=== PATIENT | male | born 1945 | race Caucasian/White ===

== ENCOUNTER 2020-05-17 21:44 | Inpatient (IN) | payer MEDICARE, SELFPAY ==
--- NOTE | ~2020-05-17 | XR_ITS ---
EXAMINATION: XR chest 1V portable INDICATION: STEMI, chest pain TECHNIQUE: Portable AP chest at 2156 hours COMPARISON: None available FINDINGS: There are patchy bilateral airspace opacities with a peripheral predominance. No pleural ef fusion or pneumothorax is identified. The heart size is normal. A moderate-sized hiatal hernia is not ed. IMPRESSION: 1. Patchy bilateral airspace opacities which could reflect pneumonia and/or pulmonary edema. Reviewed, dictated and finalized at location A. [facility] IMPRESSION: 1. Patchy bilateral airspace opacities which could reflect pneumonia and/or pul monary edema.
[2020-05-17 21:41] VITALS: BP 152/85; PULSE 117; RESP 16; TEMP 36.2; O2SAT 96
--- NOTE | 2020-05-17 21:49 | ECG_ITS ---
Measurements Intervals [place] Rate: 113 P: 72 ID: 171 QRS: 5 QRSD: 92 T: 105 QT: 310 QTc: 427 Interpretive Statements SINUS TACHYCARDIA VENTRICULAR PREMATURE COMPLEX LOW QRS VOLTAGE IN LIMB LEADS EXTENSIVE ANTERIOR ST ELEVATION- PROBABLY RECENT INFARCT BASELINE ARTIFACT- I, II, AVF ABNORMAL ECG Electronically Signed On 05-18-2020 7:28:39 SENIOR DATA ARCHITECT by Gamal Dominguez D.O.
[2020-05-17 21:59] LABS: Basophils Percent Auto 0.3 % (0.2-1.2); Eosinophils Absolute Auto 0.1 K/mm3 (0-0.3); Eosinophils Percent Auto 0.4 % (0-4.4); Hematocrit 44.7 % (42.0-52.0); Hemoglobin 14.6 g/dL (14.0-18.0); Immature Granulocyte Absolute 0.05 K/mm3 (0.00-0.031); Immature Granulocyte Percent A 0.4 % (0-0.5); Lymphocytes Absolute Auto 1.49 K/mm3 (0.9-3.2); Lymphocytes Percent Auto 11.1 % (18.3-44.2); Mean Corpuscular HGB Conc 32.7 g/dl (32-36); Mean Corpuscular Volume 91.8 fl (80-100); Mean Platelet Volume 10.7 fl (7.4-10.4); Monocytes Absolute Auto 0.8 K/mm3 (0.1-0.6); Monocytes Percent Auto 6.1 % (2.6-8.5); Neutrophils Absolute Auto 10.9 K/mm3 (1.3-6.7); Neutrophils Percent Auto 81.7 % (45.5-73.1); Platelet Count Result 332 k/mm3 (150-375); Red Blood Count 4.87 M/mm3 (4.6-6.20); Red Cell Distribution Width 13.2 % (11.5-14.5); White Blood Count 13.4 K/mm3 (4.5-10.0)
--- NOTE | 2020-05-17 22:00 | ED.CHESTPAIN ---
HPI - Chest Pain General Chief Complaint: Chest Pain Stated Complaint: CP Time Seen by Provider: 05/17/20 22:03 Source: RN notes reviewed History of Present Illness HPI narrative: Patient presents to emergency department via EMS for chest pain. Patient states for the past 3 days he has been having left-sided chest pain that is described as a pressure. The pain radiates into his left arm and is worse with activity and improves with rest. He states this evening the pain became worse and he called EMS EMS performed an EKG that shows a elevation in the lateral leads and code STEMI was called. Patient currently states the pain is down to a 6 out of 10 he denies any previous cardiac history does have a history of COPD and is chronically on 5 L nasal cannula. Also notes a history of hypertension. Denies any fevers or chills abdominal pain nausea vomiting or any other symptoms Related Data Home Medications Medication Instructions Recorded Confirmed amlodipine 5 mg PO DAILY 05/17/20 05/17/20 baclofen 20 mg PO BID 05/17/20 05/17/20 ferrous sulfate 325 mg PO BID 05/17/20 05/17/20 trazodone 100 mg PO HS 05/17/20 05/17/20 Allergies Allergy/AdvReac Type Severity Reaction Status Date / Time Influenza Virus Vaccines Allergy Unknown Rash Verified 05/17/20 21:51 Review of Systems Review of Systems: Narrative: Gen.: Denies fevers or chills ENT: Denies congestion Respiratory: Reports shortness of breath CV: See HPI GI: Denies abdominal pain nausea, emesis or diarrhea Musculoskeletal: Denies back pain or muscle pain Neuro: Denies numbness, tingling, weakness or focal weakness Skin: Denies rash Except as documented, all other systems reviewed and negative [facility] Past Medical History Medical History (Updated 05/17/20 @ 22:05 by Scooter Vasquez DO) COPD (chronic obstructive pulmonary disease) Hypertension Social History Social History (Updated 05/17/20 @ 22:01 by Scooter Vasquez DO) Smoking status: Former smoker Exam Narrative: Exam Narrative: APPEARANCE: No acute distress, nontoxic, resting in bed EYES: EOMI HEENT: Normocephalic, atraumatic, OMM RESPIRATORY: No respiratory distress Clear to auscultation bilaterally with no rhonchi wheezing or rales. CARDIOVASCULAR: Regular rate and rhythm without murmurs rubs or gallops. ABDOMINAL: Soft, nontender, nondistended, no rebound or guarding MUSCULOSKELETAl: Moves all extremities. No clubbing, cyanosis or edema. NEURO: Awake and alert. Following commands, speech normal, no focal deficits SKIN:: Warm, dry. No rashes lesions or abrasions PSYCHIATRIC: Normal affect/mood, Course Course Emergency Course: Code STEMI called upon activation by EMS. Called and discussed with Dr. Self presentation and work-up. EKG was reviewed will come to the emergency department take patient to the Cooler Operator. Request patient receive heparin Discussed with patient and family who are present concern for ST elevation [place] discussed plan for Cooler Operator in agreement at this time Vital Signs Vital signs: Vital Signs Temperature 97.2 F L 05/17/20 21:41 Pulse Rate 117 H 05/17/20 21:41 Respiratory Rate 16 05/17/20 21:41 Blood Pressure 152/85 H 05/17/20 21:41 Pulse Oximetry 96 05/17/20 21:41 Temperature 97.2 F L 05/17/20 21:41 Pulse Rate 110 H 05/17/20 22:19 Respiratory Rate 19 05/17/20 22:19 Blood Pressure 139/79 05/17/20 22:19 Pulse Oximetry 99 05/17/20 22:19 MDM - Chest Pain Lab Data Result diagrams: 05/17/20 21:53 05/17/20 21:53 Labs: Lab Results 05/17/20 05/17/20 05/17/20 Range/Units 21:53 21:53 21:53 WBC 13.4 H (4.5-10.0) K/mm3 RBC 4.87 (4.6-6.20) M/mm3 Hgb 14.6 (14.0-18.0) g/dL Hct 44.7 (42.0-52.0) % MCV 91.8 (80-100) fl MCH 30.0 (26-34) pg MCHC 32.7 (32-36) g/dl RDW 13.2 (11.5-14.5) % Plt Count 332 (150-375) k/mm3 MPV 10.7 H (7.4-10.4) fl Immature Gran % (Auto) 0.4
[2020-05-17] MEDS: MORPHINE SULFATE (*CRX) 2 MG/ML INJ (22:03)
--- NOTE | 2020-05-17 22:04 | PC.NURSE ---
heparin 4000 units given morphine 2 mg given
[2020-05-17 22:06] VITALS: BP 155/82; PULSE 115; PULSE 117; RESP 22; O2SAT 95
[2020-05-17 22:08] LABS: Prothrombin Time 13.1 Seconds (11.1-14.7)
[2020-05-17 22:09] LABS: Partial Thromboplastin Time 29.5 SECONDS (22.3-36.8)
[2020-05-17 22:17] LABS: Alanine Aminotransferase 14 U/L (4-50); Albumin Level 4.3 g/dL (3.5-5.1); Alkaline Phosphatase 110 U/L (38-126); Anion Gap 7 mmol/L (8-16); Aspartate Amino Transferase 55 U/L (17-59); Bilirubin,Total 0.5 mg/dL (0.2-1.3); Blood Urea Nitrogen 11 mg/dL (9-20); Calcium 8.9 mg/dL (8.4-10.2); Carbon Dioxide 33 mmol/L (22-30); Chloride 99 mmol/L (98-107); Cholesterol 195 mg/dL (0-200); Estimated CRCL calculation 84 ml/min; Estimated Glomerular Filt Rate > 60; Glucose 165 mg/dL (75-110); HDL Direct 55 mg/dL; Potassium 4.3 mmol/L (3.4-5.0); Sodium 139 mmol/L (137-145); Triglycerides 74 mg/dL (<150)
[2020-05-17 22:19] VITALS: BP 139/79; PULSE 110; RESP 19; O2SAT 99
[2020-05-17 22:22] LABS: LDL Cholesterol Direct 106 mg/dL
--- NOTE | 2020-05-17 23:09 | PM.IMHP ---
H&P: HPI History of Present Illness Date/Time: 05/17/20 23:09 Chief complaint: STEMI Narrative: Date of service -05/17/2020 chief complaint: Chest pain, off and on x3 days HPI: Pb Gunderson is a 75 year old male hypertension, COPD on home oxygen, history of tobacco abuse. Patient was brought to [facility] ER via EMS with complaints of chest discomfort, off and on x3 days. Patient states that he has been experiencing chest pain associated with shortness of breath for last 3 days. Today, his symptoms got worse and EMS was summoned. His EKG which I personally evaluated showed sinus tachycardia, ST elevation in the anteroseptal leads. Cardiac catheterization lab was activated for primary PCI. patient received heparin and aspirin in the emergency room. His coronary angiogram showed 99%, hazy ulcerated stenosis in the proximal LAD; mild nonobstructive disease in the RCA. He underwent primary PCI with placement of the 4.0 x 15 mm sirolimus eluting stent. Left ventriculogram showed severe LV systolic dysfunction with akinesis of mid -distal anterior wall and apex; ejection fraction 10-15%. LVEDP 25 mmHg. Review of Systems Review of Systems: Narrative: General: Negative for fever, chills, fatigue Psychological: Negative for anxiety, depression Ophthalmic: negative for loss of vision ENT: Negative for epistaxis, headaches Allergy and immunology: Negative for hives, nasal congestion Hematologic and lymphatic: Negative for overt bleeding problems Endocrine: Negative for hot flashes, palpitations Respiratory: positive for baseline dyspnea on exertion Cardiovascular: positive for chest pain, shortness of breath Gastrointestinal: Negative for abdominal pain, nausea, vomiting, hematochezia Musculoskeletal: Negative for myalgia, joint pains Neurological: Negative for weakness Dermatological: Negative for rash, skin discoloration PMFSH Past Medical History Medical History COPD (chronic obstructive pulmonary disease) Hypertension Social History Social History Smoking status: Former smoker Alcohol intake: unknown Substance use: never Living arrangements: with family Additional living arrangements comments: lives with son and [id number] Meds Home Medications and Allergies Home Medications Medication Instructions Recorded Confirmed Type amlodipine 5 mg PO DAILY 05/17/20 05/17/20 History baclofen 20 mg PO BID 05/17/20 05/17/20 History ferrous sulfate 325 mg PO BID 05/17/20 05/17/20 History trazodone 100 mg PO HS 05/17/20 05/17/20 History Allergies Allergy/AdvReac Type Severity Reaction Status Date / Time Influenza Virus Vaccines Allergy Unknown Rash Verified 05/17/20 21:51 Vital Signs Vital Signs - 24 hr 05/17/20 21:41 05/17/20 22:06 05/17/20 22:19 Temperature 36.2 C L Pulse Rate 117 H 115 H 110 H Respiratory Rate 16 22 H 19 Blood Pressure 152/85 H 155/82 H 139/79 Pulse Oximetry 96 95 99 Exam Narrative: Exam Narrative: PHYSICAL EXAMINATION: GENERAL: Alert, oriented, no acute distress MENTAL STATUS: affect appropriate to mood EYES: Extraocular movements intact, no pallor EARS: External ears appear normal, hearing grossly normal NOSE: Normal and patent, no discharge MOUTH: Mucous membranes moist, tongue normal NECK: Supple, no JVD CHEST: diminished breath sounds HEART: Normal rate, regular rhythm, diminished heart sounds ABDOMEN: Soft, nontender NEUROLOGICAL: Alert, oriented, normal speech, no gross motor deficits MUSCULOSKELETAL: No major deformity, no amputation EXTREMITIES: No pedal edema, no clubbing, no cyanosis SKIN: no rash on the exposed area, no cyanosis PSYCHIATRIC: Normal mood, appropriate affect H&P: Results Labs Labs: Short CBC 05/17/20 Range/Units 21:53 WBC 13.4 H (4.5-10.0) K/mm3 Hgb 14.6 (14.0-18.0) g/dL
--- NOTE | 2020-05-17 23:21 | WPDCARDPROC ---
Cardiac Cath Procedure Note Date of procedure:: 05/17/20 Performing physician:: Sam Self MD Procedure Procedure note:: EMERGENT CARDIAC CATHETERIZATION AND PERCUTANEOUS CORONARY INTERVENTION REPORT DATE OF PROCEDURE: 05/17/2020 INDICATION FOR PROCEDURE: ACUTE CORONARY SYNDROME -ANTEROSEPTAL ST-ELEVATION WI BRIEF CLINICAL HISTORY:75 year old male hypertension, COPD on home oxygen, history of tobacco abuse. Patient was brought to [facility] ER via EMS with complaints of chest discomfort, off and on x3 days. Patient states that he has been experiencing chest pain associated with shortness of breath for last 3 days. Today, his symptoms got worse and EMS was summoned. His EKG showed sinus tachycardia, ST elevation in the anteroseptal leads. Cardiac catheterization lab was activated for primary PCI. Patient had received aspirin and heparin prior to arrival to the engineering laboratory technician. Benefits and risks of the procedure were discussed with the patient in depth, and informed consent was obtained prior to the procedure. Risks of the procedure include but are not limited to vascular complications including groin hematoma, retroperitoneal bleed, vessel perforation; periprocedural WI, cardiac arrhythmias, stroke, contrast induced nephropathy, and . After discussing all the benefits, risks and alternatives, patient was willing to proceed with the procedure. PROCEDURES PERFORMED: 1. Left heart catheterization- Selective left and right coronary angiogram; left ventriculogram and hemodynamic assessment 2. PRIMARY Percutaneous coronary intervention- balloon angioplasty and stenting of hazy, ulcerated subtotal occlusion of proximal LAD using a 4.0 x 15 mm Orsiro sirolimus eluting stent. 3. Selective right common femoral angiogram and deployment of Angio-Seal hemostatic device 4. Moderate sedation-CPT code 26080 MODERATE SEDATION: Patient was given 2 mg of morphine in the ER. orthodontic laboratory technician sedation observation Start time 2240 , Stop time 2306 ; Total [id number] time 26 minutes; Vishal Perez RN was trained observer for moderate sedation. ACCESS SITE: Right common femoral artery PROCEDURE NOTE: After obtaining informed consent, patient was emergently brought to catheterization lab and prepped and draped in a usual sterile manner. After local anesthesia with lidocaine, right common femoral artery access was taken with micropuncture needle followed by insertion of a 6 [place] sheath. Selective left and right coronary angiogram was performed using 6 CLS 3.5 guide catheter and JR4 catheters respectively. Orthogonal views were taken. After completion of PCI, a 5 [place]divian pigtail catheter was advanced in the LV cavity and was flushed with normal saline. LV pressure measurement was performed. After this, left ventriculogram was performed. The catheter was flushed again, and gradient across the aortic valve was measured on the pullback of the catheter. Selective right common femoral angiogram was performed after PCI followed by successful deployment of Angio-Seal vascular closure device. Patient tolerated procedure well without any immediate procedure related complications. FINDINGS: LEFT MAIN CORONARY: the left main coronary artery is a large caliber vessel, no angiographic significant focal stenosis seen. LEFT ANTERIOR DESCENDING ARTERY: The LAD is a large caliber vessel in the proximal segment, tapers and becomes medium caliber vessel in the mid segment and tapers distally and reaches the LV apex. There is hazy, ulcerated 99% stenosis in the proximal segment ( culprit lesion) at the origin of the small to medium size 1st diagonal branch.. There is mild eccentric plaque in the mid segment distal to the 2nd diagonal branch ; and mild diffuse plaque in the lower part of the mid segment. 1st diagonal branch has hazy plaque at the ostium; 2nd diagonal branch is a medium-sized vessel without significant focal stenosis. LEFT CIRCUMFLEX ARTERY: T
[2020-05-17 23:47] VITALS: BP 131/81; PULSE 104; RESP 18; TEMP 36.4; O2SAT 95; BMI 26.2
[2020-05-18] VITALS (21 sets, daily range): BP systolic 102–136; BP diastolic 55–98; PULSE 82–108; RESP 14–22; TEMP 35.8–37.2; O2SAT 95–100
--- NOTE | 2020-05-18 | ECHO_ITS ---
Patient Info Name: Pb Gunderson Age: 75 years : 1945 Gender: Male Ht: 72 in Wt: 193 lbs BSA: 2.12 m2 HR: 97 bpm BP: 123 / 54 mmHg Heart Rhythm: Sinus Rhythm Technical Quality: Fair Exam Date: 05/18/2020 11:38 AM Exam Location: [facility]monary Exam Room: ICU11 Patient Status: Inpatient Admit Date: 05/17/2020 Staff Ordering Physician: Byron Key MD Soft Tile Setter: Gilda Barrera RDCS Attending Provider: Sam Self MD Referring Physician: Yesi FOX; Exam Type: CA echo dop color flow w con Study Info Indications - CM Complete two-dimensional, color flow and Doppler transthoracic echocardiogram is performed with contrast to opacify the left ventricle and to improve the deliniation of the left ventricle endocardial borders. Contrast/Agitated Saline Contrast/Ag. Saline: Definity Amount: 2.00 ml Administered By: Ruth Pena, RN Summary 1. Left ventricular chamber dimension is mildly enlarged. 2. Left ventricular systolic function is severely reduced, estimated at 25-30%. 3. There is mildly increased left ventricular wall thickness. 4. The left ventricular diastolic function is grade I diastolic dysfunction. 5. The apical anterior wall, apical cap, mid anterior wall, and mid anteroseptal are akinetic. 6. The apical septum, apical lateral wall, apical inferior wall, basal anterior wall, and mid inferoseptal are hypokinetic. 7. All other ayala appear normal. 8. Possible thrombus seen at the apex. 9. Left atrial chamber dimension is mildly enlarged. 10. There is mild mitral valve regurgitation. 11. The mitral valve has thickened leaflets and calcified annulus. 12. There is mild tricuspid valve regurgitation. Left Ventricle Left ventricular chamber dimension is mildly enlarged. Left ventricular systolic function is severely reduced, estimated at 25-30%. There is mildly increased left ventricular wall thickness. The left ventricular diastolic function is grade I diastolic dysfunction. The apical anterior wall, apical cap, mid anterior wall, and mid anteroseptal are akinetic. The apical septum, apical lateral wall, apical inferior wall, basal anterior wall, and mid inferoseptal are hypokinetic. All other ayala appear normal. Possible thrombus seen at the apex. Right Ventricle Right ventricular chamber dimension is normal. Right ventricular systolic function is normal. Left Atria Left atrial chamber dimension is mildly enlarged. Right Atria Right atrial chamber dimension is normal. Atrial Septum Intact interatrial septum visualized by color flow imaging. Aortic Valve The aortic valve is trileaflet. There is mild aortic valve sclerosis. There is no aortic valve stenosis. There is trace aortic valve regurgitation. Pulmonic Valve The pulmonic valve is normal. There is no pulmonic valve stenosis. There is trace pulmonic regurgitation. Mitral Valve The mitral valve has thickened leaflets and calcified annulus. There is no mitral valve stenosis. There is mild mitral valve regurgitation. Tricuspid Valve The tricuspid valve leaflets are normal. There is no significant tricuspid valve stenosis. There is mild tricuspid valve regurgitation. No pulmonary hypertension, estimated pulmonary arterial systolic pressure is 32 mmHg. Pericardium/Pleural The pericardium appears normal. There is no pericardial effusion. Inferior Vena Cava Normal inferior trupti
[2020-05-18 00:20] LABS: Cholesterol 174 mg/dL (0-200); HDL Direct 53 mg/dL; Triglycerides 64 mg/dL (<150)
[2020-05-18 00:33] LABS: LDL Cholesterol Direct 100 mg/dL
[2020-05-18] MEDS: METOPROLOL TARTRATE 6.25 MG TABLET PO ×2 (00:38→08:19)
[2020-05-18] MEDS: ATORVASTATIN 40 MG TABLET 80 MG PO ×2 (00:39→20:27)
[2020-05-18] MEDS: ACETAMINOPHEN 500 MG TABLET 1000 MG PO (02:02)
[2020-05-18] MEDS: MAG HYDROX/AL HYDROX/SIMETH 30 ML UDC PO (02:03)
[2020-05-18] MEDS: SODIUM CHLORIDE 0.9% IV 1,000 ML 125 ML IV CONT (06:20)
[2020-05-18] MEDS: TICAGRELOR 90 MG TABLET PO ×2 (08:19→20:27)
[2020-05-18] MEDS: ASPIRIN 81 MG ENTERIC TABLET PO (08:19)
[2020-05-18] MEDS: LOSARTAN POTASSIUM 12.5 MG TABLET PO (08:19)
[2020-05-18] MEDS: SPIRONOLACTONE 25 MG TABLET PO (08:20)
[2020-05-18] MEDS: FUROSEMIDE INJ 40 MG/4 ML VIAL IV PUSH (08:22)
--- NOTE | 2020-05-18 08:42 | ECG_ITS ---
Measurements Intervals [place] Rate: 83 P: 62 [place]: 178 QRS: 45 QRSD: 101 T: 100 QT: 410 QTc: 482 Interpretive Statements SINUS RHYTHM CANNOT RULE OUT SEPTAL INFARCT, AGE INDETERMINATE T WAVE ABNORMALITY IN ANTEROLATERAL LEADS- CONSIDER ISCHEMIA BASELINE ARTIFACT- I, II, III ABNORMAL ECG Electronically Signed On 05-18-2020 9:34:21 MARKETING UNDERWRITER by Gmaal Dominguez D.O.
--- NOTE | 2020-05-18 09:24 | PM.PNCARD ---
Progress Note: A&P Assessment and Plan (1) ST elevation (STEMI) myocardial infarction: Code(s): I21.3 - ST elevation (STEMI) myocardial infarction of unspecified site Status: Acute Assessment and Plan: 75-year-old male with COPD on home oxygen, hypertension, history of tobacco abuse. He presented with 3 day history of intermittent chest pain with worsening of chest pain today. He was found to have anteroseptal ST-elevation [place]. He underwent primary PCI/ JESSY x1 proximal LAD. Left ventriculogram showed severe LV systolic dysfunction with akinesis of anterior wall and apex; ejection fraction 10-15%. 2D echocardiogram with definity contrast to be ordered today. Will transition him to metoprolol succinate 12.5 mg daily and up titrate as able. - external wearable defibrillator (life vest) at the time of discharge (2) Hypertension: Code(s): I10 - Essential (primary) hypertension Status: Acute Assessment and Plan: management as above (3) COPD (chronic obstructive pulmonary disease): Code(s): J44.9 - Chronic obstructive pulmonary disease, unspecified Status: Acute Assessment and Plan: supplemental oxygen (4) Cardiomyopathy: Code(s): I42.9 - Cardiomyopathy, unspecified Status: Acute Assessment and Plan: severe Subjective Date/time seen: 05/18/20 09:24 Interval history: Reason for admission: Chest pain. Hiscoronary angiogram showed 99%, hazy ulcerated stenosis in the proximal LAD; mild nonobstructive disease in the RCA. He underwent primary PCI with placement of the 4.0 x 15 mm sirolimus eluting stent. Left ventriculogram showed severe LV systolic dysfunction with akinesis of mid -distal anterior wall and apex; ejection fraction 10-15%. LVEDP 25 mmHg. Date of service 05/18/2020: He has a very slight amount of residual chest pain but overall much better than previous. He has no groin pain. No significant shortness of breath. Review of Systems Review of Systems: All systems reviewed & are unremarkable except as noted in HPI and below Constitutional: Constitutional: Denies weakness Eyes: Eyes: Denies blurry vision ENT: Reports Normal hearing present Cardiovascular: Cardiovascular: Reports chest pain and Denies leg edema Respiratory: Respiratory: Denies dyspnea Gastrointestinal: Gastrointestinal: Denies abdominal pain Genitourinary: Genitourinary: Denies dysuria Musculoskeletal: Musculoskeletal: Denies neck pain Integumentary/Breasts: Skin/Breast: Denies dry skin Neurologic: Denies headache(s) and Denies numbness Psychiatric: Psychiatric: Denies anxiety Endocrine: Endocrine: Denies change in body appearance Hematologic/Lymphatic: Hematologic/Lymphatic: Denies easy bleeding Allergic/Immunologic: Allergic/Immunologic: Denies GI upset with certain foods Exam Narrative: Exam Narrative: PHYSICAL EXAMINATION: GENERAL: Alert, oriented, no acute distress MENTAL STATUS: affect appropriate to mood EYES: Extraocular movements intact, no pallor EARS: External ears appear normal, hearing grossly normal NOSE: Normal and patent, no discharge MOUTH: Mucous membranes moist, tongue normal NECK: Supple, no JVD CHEST: diminished breath sounds HEART: Normal rate, regular rhythm, diminished heart sounds. Right groin is free of hematoma ecchymosis or bruit ABDOMEN: Soft, nontender NEUROLOGICAL: Alert, oriented, normal speech, no gross motor deficits MUSCULOSKELETAL: No major deformity, no amputation EXTREMITIES: No pedal edema, no clubbing, no cyanosis SKIN: no rash on the exposed area, no cyanosis PSYCHIATRIC: Normal mood, appropriate affect Objective Data Vital Signs Vital Signs: Vital Signs - 24 hr 05/17/20 21:41 05/17/20 22:06 05/17/20 22:19 Temperature 36.2 C L Pulse Rate 117 H 115 H 110 H Pulse Rate [Right Pedal (Dorsalis Pedis)] Respiratory Rate 16 22 H 19 Blood Pressure 152/85 H 155/82 H 139/79 P
--- NOTE | 2020-05-18 09:33 | WPDCNINT ---
Assessment and Plan Assessment and plan (1) ST elevation (STEMI) myocardial infarction: Code(s): I21.3 - ST elevation (STEMI) myocardial infarction of unspecified site Status: Acute Assessment and Plan: Anteroseptal ST-elevation [place]. He underwent primary PCI/ JESSY x1 proximal LAD. Left ventriculogram showed severe LV systolic dysfunction with akinesis of anterior wall and apex; ejection fraction 10-15%. 2D echocardiogram with definity contrast to be ordered today. ASA, brilinta, BB, Statin, ARB Groin site ok (2) Cardiomyopathy: Code(s): I42.9 - Cardiomyopathy, unspecified Status: Acute Assessment and Plan: severe ischemic cardiomyopathy EF on LV gram ECHO pending Lasix, BB, ARB, Aldactone Life vest upon discharge per cardiology (3) Hypertension: Code(s): I10 - Essential (primary) hypertension Status: Acute Assessment and Plan: management as above (4) COPD (chronic obstructive pulmonary disease): Code(s): J44.9 - Chronic obstructive pulmonary disease, unspecified Status: Acute Assessment and Plan: Not in exacerbation at this time supplemental oxygen Duoneb added (5) Pulmonary edema, acute: Code(s): J81.0 - Acute pulmonary edema Status: Acute Assessment and Plan: Lasix 40 mg Iv x1 satting adequately on nasal cannula with no respiratory distress Additional Plan Lovenox for DVTP Transfer out of ICU today Desk Attendant Consult Note Consult date: 05/18/20 Time Seen: 07:00 HPI: Pb Gunderson is a 75 year old male with past medical history of hypertension, COPD on home oxygen 5 L, history of tobacco abuse. Patient was brought to [facility] ER via EMS yesterday with complaint of chest pain. patient was diagnosed with STEMI. Patient received heparin and aspirin in the emergency room. His coronary angiogram showed 99%, hazy ulcerated stenosis in the proximal LAD; mild nonobstructive disease in the RCA. He underwent primary PCI with placement of the 4.0 x 15 mm sirolimus eluting stent. Left ventriculogram showed severe LV systolic dysfunction with akinesis of mid -distal anterior wall and apex; ejection fraction 10-15%. LVEDP 25 mmHg. Postprocedure patient was admitted to ICU for further evaluation management. This morning patient feels better and chest pain has resolved. He told me his pain was 10 out 10 severe, had been intermittently going on for many days, worse with activity, no resolving factors, radiated to left arm, associated with shortness of breath. Pain now has completely resolved as per patient. He denies any other complaints apart from occasional shortness of breath which is chronic as per patient, also has chronic cough. he denies any fever chills or change in sensation of taste or smell. No sick contacts or recent travel. he does complain of body aches but blames on his arthritis and age and states it is chronic. Patient denies nausea vomiting, abdominal pain,, diarrhea, headache or constipation. All other systems were reviewed and were negative Review of Systems Review of Systems: All systems reviewed & are unremarkable except as noted in HPI and below (HPI) PMFSH Past Medical History Medical History COPD (chronic obstructive pulmonary disease) Hypertension Family History Family History Sibling Accelerated phase chronic myeloid leukemia Sibling Lung cancer Social History Social History Smoking packs per day: 1 Smoking cigarettes per day: 20.0 Smoking status: Former smoker Tobacco type: cigarettes Second hand tobacco smoke exposure: No Smoking end date: 07/21/14 Alcohol intake: former Substance use: former Living arrangements: with family Additional living arrangements comments: lives with son and [id number]
[2020-05-18] MEDS: PERFLUTREN LIPID MICROSPHERES 1.5 ML VIAL DILUTED TO 10 ML TOTAL VOLUME IV PUSH (12:07)
--- NOTE | 2020-05-18 12:50 | PC.NURSE ---
Pt. transferred via wheelchair to room 214. Vital signs stable. Pt. stable upon transfer and having no s/s of distress at this time. Report given to Siria Hines RN. [facility] in room to take vital signs and settle patient into room.
[2020-05-18] MEDS: ENOXAPARIN 100 MG/ML SYRINGE 90 MG SUB-Q (18:18)
[2020-05-18] MEDS: traZODone HCL 50 MG TABLET 100 MG PO (20:27)
[2020-05-19] VITALS (17 sets, daily range): BP systolic 96–109; BP diastolic 40–55; PULSE 80–108; RESP 18–22; TEMP 36.5–37.2; O2SAT 94–99
[2020-05-19] MEDS: ENOXAPARIN 100 MG/ML SYRINGE 90 MG SUB-Q ×2 (05:59→17:33)
--- NOTE | 2020-05-19 09:55 | PM.PNCARD ---
Progress Note: A&P Assessment and Plan (1) ST elevation (STEMI) myocardial infarction: Code(s): I21.3 - ST elevation (STEMI) myocardial infarction of unspecified site Status: Acute Assessment and Plan: 75-year-old male with COPD on home oxygen, hypertension, history of tobacco abuse. He presented with 3 day history of intermittent chest pain with worsening of chest pain today. He was found to have anteroseptal ST-elevation NC. He underwent primary PCI/ JESSY x1 proximal LAD. Left ventriculogram showed severe LV systolic dysfunction with akinesis of anterior wall and apex; ejection fraction 10-15%. he has a possible LV thrombus at the apex. Continue full anticoagulation for now. Will repeat a limited echo tomorrow with definity hopefully to confirm presence of thrombus or not. - external wearable defibrillator (life vest) at the time of discharge (2) Hypertension: Code(s): I10 - Essential (primary) hypertension Status: Acute Assessment and Plan: management as above (3) COPD (chronic obstructive pulmonary disease): Code(s): J44.9 - Chronic obstructive pulmonary disease, unspecified Status: Acute Assessment and Plan: supplemental oxygen (4) Cardiomyopathy: Code(s): I42.9 - Cardiomyopathy, unspecified Status: Acute Assessment and Plan: severe Subjective Date/time seen: 05/19/20 09:55 Interval history: Reason for admission: Chest pain. Hiscoronary angiogram showed 99%, hazy ulcerated stenosis in the proximal LAD; mild nonobstructive disease in the RCA. He underwent primary PCI with placement of the 4.0 x 15 mm sirolimus eluting stent. Left ventriculogram showed severe LV systolic dysfunction with akinesis of mid -distal anterior wall and apex; ejection fraction 10-15%. LVEDP 25 mmHg. Date of service 05/19/2020: feels okay today. No chest pain or shortness of breath Review of Systems Review of Systems: All systems reviewed & are unremarkable except as noted in HPI and below Constitutional: Constitutional: Denies headache(s) and Denies weakness Eyes: Eyes: Denies blurry vision ENT: Reports Normal hearing present, Denies headache(s) and Denies neck pain Cardiovascular: Cardiovascular: Reports chest pain, Denies leg edema and Denies dyspnea Respiratory: Respiratory: Denies dyspnea Gastrointestinal: Gastrointestinal: Denies abdominal pain Genitourinary: Genitourinary: Denies dysuria Musculoskeletal: Musculoskeletal: Denies neck pain and Denies numbness Integumentary/Breasts: Skin/Breast: Denies dry skin Neurologic: Reports Normal hearing present, Denies headache(s), Denies numbness and Denies weakness Psychiatric: Psychiatric: Denies anxiety Endocrine: Endocrine: Denies change in body appearance Hematologic/Lymphatic: Hematologic/Lymphatic: Denies easy bleeding Allergic/Immunologic: Allergic/Immunologic: Denies GI upset with certain foods Exam Narrative: Exam Narrative: PHYSICAL EXAMINATION: GENERAL: Alert, oriented, no acute distress MENTAL STATUS: affect appropriate to mood EYES: Extraocular movements intact, no pallor EARS: External ears appear normal, hearing grossly normal NOSE: Normal and patent, no discharge MOUTH: Mucous membranes moist, tongue normal NECK: Supple, no JVD CHEST: diminished breath sounds HEART: Normal rate, regular rhythm, diminished heart sounds. Right groin is free of hematoma ecchymosis or bruit ABDOMEN: Soft, nontender NEUROLOGICAL: Alert, oriented, normal speech, no gross motor deficits MUSCULOSKELETAL: No major deformity, no amputation EXTREMITIES: No pedal edema, no clubbing, no cyanosis SKIN: no rash on the exposed area, no cyanosis PSYCHIATRIC: Normal mood, appropriate affect Neuro: Cranial nerves: Yes Normal hearing present Objective Data Vital Signs Vital Signs: Vital Signs - 24 hr 05/18/20 10:00 05/18/20 11:00 05/18/20 12:00 Temperature Pulse Rat
[2020-05-19] MEDS: METOPROLOL SUCCINATE EXT REL 12.5 MG TABCR PO (11:10)
[2020-05-19] MEDS: ASPIRIN 81 MG ENTERIC TABLET PO (11:10)
[2020-05-19] MEDS: LOSARTAN POTASSIUM 12.5 MG TABLET PO (11:10)
[2020-05-19] MEDS: SPIRONOLACTONE 25 MG TABLET PO (11:10)
[2020-05-19] MEDS: TICAGRELOR 90 MG TABLET PO ×2 (11:10→20:31)
[2020-05-19] MEDS: IPRATROPIUM BR 0.02% INH SOLN 0.5 MG/2.5 ML VIAL INHALATION (18:01)
[2020-05-19] MEDS: ALBUTEROL SULFATE NEB 2.5 MG/0.5 ML INH INHALATION (18:01)
[2020-05-19] MEDS: ATORVASTATIN 40 MG TABLET 80 MG PO (20:31)
[2020-05-19] MEDS: traZODone HCL 50 MG TABLET 100 MG PO (20:31)
[2020-05-19] MEDS: ACETAMINOPHEN 500 MG TABLET 1000 MG PO (20:34)
[2020-05-20] VITALS (11 sets, daily range): BP systolic 100–131; BP diastolic 56–68; PULSE 71–111; RESP 18–22; TEMP 36–36.7; O2SAT 97–99
[2020-05-20] MEDS: ENOXAPARIN 100 MG/ML SYRINGE 90 MG SUB-Q (05:26)
[2020-05-20] MEDS: ASPIRIN 81 MG ENTERIC TABLET PO (08:47)
[2020-05-20] MEDS: TICAGRELOR 90 MG TABLET PO (08:47)
[2020-05-20] MEDS: LOSARTAN POTASSIUM 12.5 MG TABLET PO (08:47)
[2020-05-20] MEDS: SPIRONOLACTONE 25 MG TABLET PO (08:47)
[2020-05-20] MEDS: METOPROLOL SUCCINATE EXT REL 12.5 MG TABCR PO (08:47)
--- NOTE | 2020-05-20 09:47 | PCOTNOTE ---
Attempted to see patient this am, however patient declined stating he already completed ADLs and was planning to discharge soon today. Pt reported no concerns as pertains to OT at this time.
--- NOTE | 2020-05-20 11:03 | PM.DS ---
DS: Admitting Diagnosis Admitting Diagnosis Admitting Diagnosis: STEMI DS: Discharge Diagnosis Discharge Diagnosis (1) ST elevation (STEMI) myocardial infarction: Code(s): I21.3 - ST elevation (STEMI) myocardial infarction of unspecified site Status: Acute Assessment and Plan: 75-year-old male with COPD on home oxygen, hypertension, history of tobacco abuse. He presented with 3 day history of intermittent chest pain with worsening of chest pain today. He was found to have anteroseptal ST-elevation HI. He underwent primary PCI/ JESSY x1 proximal LAD. Left ventriculogram showed severe LV systolic dysfunction with akinesis of anterior wall and apex; ejection fraction 10-15%. Continue aspirin, atorvastatin, spironolactone, Metoprolol succinate and losartan. Due to initiation of Xarelto for probable thrombus will convert from Brilinta to clopidogrel. Hopefully will be able to up titrate medications as an outpatient. He has a possible LV thrombus at the apex. Life Vest has been approved. Probable LV thrombus. Due to low EF will discharge on Xarelto 20 mg daily. (2) Hypertension: Code(s): I10 - Essential (primary) hypertension Status: Acute Assessment and Plan: Management as above (3) COPD (chronic obstructive pulmonary disease): Code(s): J44.9 - Chronic obstructive pulmonary disease, unspecified Status: Acute Assessment and Plan: Supplemental oxygen (4) Cardiomyopathy: Code(s): I42.9 - Cardiomyopathy, unspecified Status: Acute Assessment and Plan: Severe. Continue Metoprolol succinate, losartan and spironolactone. Follow renal function and electrolytes as an outpatient. DS: Summary Hospital Course Reason for hospitalization: Chest pain /ST-elevation myocardial infarction Hospital Course: 75-year-old with hypertension, COPD on home oxygen, history of tobacco abuse that [facility] with complaints of chest discomfort, off and on x3 days. He had been experiencing chest pain associated with shortness of breath for last 3 days. On day of admission his symptoms got worse and EMS was summoned. His EKG showed sinus tachycardia, ST elevation in the anteroseptal leads. Cardiac catheterization lab was activated for primary PCI. He received heparin and aspirin in the emergency room. His coronary angiogram showed 99%, hazy ulcerated stenosis in the proximal LAD; mild nonobstructive disease in the RCA. He underwent primary PCI with placement of the 4.0 x 15 mm sirolimus eluting stent. Left ventriculogram showed severe LV systolic dysfunction with akinesis of mid -distal anterior wall and apex; ejection fraction 10-15%. LVEDP 25 mmHg. He was started on Brilinta, atorvastatin, metoprolol tartrate, losartan and spironolactone. Echocardiogram 05/18/2020: Left ventricular chamber dimension is mildly enlarged. Left ventricular systolic function is severely reduced, estimated at 25-30%. There is mildly increased left ventricular wall thickness. The left ventricular diastolic function is grade I diastolic dysfunction. The apical anterior wall, apical cap, mid anterior wall, and mid anteroseptal are akinetic. The apical septum, apical lateral wall, apical inferior wall, basal anterior wall, and mid inferoseptal are hypokinetic. All other ayala appear normal. Possible thrombus seen at the apex. Left atrial chamber dimension is mildly enlarged. There is mild mitral valve regurgitation. The mitral valve has thickened leaflets and calcified annulus. There is mild tricuspid valve regurgitation. Due to his poor LV function and significant wall motion abnormality he will be anticoagulated with Xarelto 20 mg daily for probable thrombus. Life Vest was fitted at discharge. He was pain-free and breathing was improved on day of discharge.
--- NOTE | 2020-05-20 11:49 | PCPTNOTE ---
Attempted therapy session, Pt was being instructed on his Life vest. Will attempt again and continue treatment per plan of care.
[2020-05-20 11:50] LABS: Anion Gap 6 mmol/L (8-16); Blood Urea Nitrogen 17 mg/dL (9-20); Calcium 8.7 mg/dL (8.4-10.2); Carbon Dioxide 37 mmol/L (22-30); Chloride 96 mmol/L (98-107); Estimated CRCL calculation 68 ml/min; Estimated Glomerular Filt Rate > 60; Glucose 125 mg/dL (75-110); Magnesium 2.3 mg/dL (1.6-2.3); Potassium 3.6 mmol/L (3.4-5.0); Sodium 139 mmol/L (137-145)
[2020-05-20] MEDS: POTASSIUM CHLORIDE 20 MEQ TABLET 40 MEQ PO (12:49)
[2020-05-20] MEDS: CLOPIDOGREL BISULFATE 300 MG TABLET PO (15:14)
== END 2020-05-20 15:22 | disposition home or self-care (01) | DRG 246 ==
LOC: ANHED 22:05 → ANHICU 05-18 10:29 → ANHIMU 05-20 11:42 → ANHICU 05-22 15:29 → ANHIMU 05-22 15:29
PROVIDERS: Nurse Practitioner Adult Health; Admitting Provider Internal Medicine Cardiovascular Disease; Emergency Provider Emergency Medicine; PCP Internal Medicine; Visit Provider Internal Medicine Cardiovascular Disease
PROC: 4A023N7 Measurement of Cardiac Sampling and Pressure, Left Heart, Percutaneous Approach (ICD-10-PCS; CPT 93452; principal; 2020-05-17 22:05)
PROC: 027034Z Dilation of Coronary Artery, One Artery with Drug-eluting Intraluminal Device, Percutaneous Approach (ICD-10-PCS; 2020-05-17 22:05)
PROC: 027034Z Dilation of Coronary Artery, One Artery with Drug-eluting Intraluminal Device, Percutaneous Approach (ICD-10-PCS; 2020-05-17 22:05)
DX: I21.09 ST elevation (STEMI) myocardial infarction involving other coronary artery of anterior wall (principal); J81.0 Acute pulmonary edema; I23.6 Thrombosis of atrium, auricular appendage, and ventricle as current complications following acute myocardial infarction; I42.9 Cardiomyopathy, unspecified; I25.10 Atherosclerotic heart disease of native coronary artery without angina pectoris; I10 Essential (primary) hypertension; J44.9 Chronic obstructive pulmonary disease, unspecified; Z87.891 Personal history of nicotine dependence; Z99.81 Dependence on supplemental oxygen
CPT/HCPCS: 36415; 71045; 80048; 80053; 80061; 83735; 84484; 85025; 85610; 85730; 86850; 86900; 86901; 93005; 93458; 94640; 96374; 97110; 97116; 97161; 97165; 99291; A9270; C1725; C1760; C1769; C1874; C1887; C8929; C9606; G0269; J0583; J1644; J1650; J1940; J2250; J2270; J3010; J7030; J7040; Q9957

== ENCOUNTER 2020-06-05 06:22 | Inpatient (IN) | payer MEDICARE, SELFPAY ==
[2020-06-05] VITALS (36 sets, daily range): BP systolic 94–138; BP diastolic 39–59; PULSE 65–103; RESP 3–20; TEMP 36.1–37.1; O2SAT 96–100; BMI 26.3
--- NOTE | ~2020-06-05 | XR_ITS ---
EXAMINATION: XR lumbar spine 2-3V DATE: 06/05/2020 07:45 INDICATION: Low back pain. TECHNIQUE: 3 views of lumbar spine were obtained. COMPARISON: None. FINDINGS: There is 5 degrees dextrocurvature of lumbar spine. There is 3 mm retrolisthesis of L1 on L 2 and 3 mm anterolisthesis of L4 on L5. There is mild chronic anterior wedging of L1 vertebral body. There is mildly decreased disc height from L3-L4 through L5-S1 with disc calcifications. There are en dplate osteophytes at most levels. There is multilevel moderate to severe facet joint hypertrophy. IMPRESSION: 1. Moderate lumbar spondylosis. Reviewed, dictated and finalized at location A. [employer]
--- NOTE | ~2020-06-05 | CT_ITS ---
EXAMINATION: CT abdomen pelvis w con DATE: 06/05/2020 10:24 INDICATION: Anemia. Low back pain. TECHNIQUE: Computed tomography (CT) of the abdomen and pelvis was performed with 100 mL Omnipaque 350 intravenous contrast. Automated exposure control and iterative reconstruction technique were employe d. The dose-length product was 578.26 mGy-cm. COMPARISON: None. FINDINGS: The visualized portions of the lung bases demonstrate bilateral bronchiectasis. There are c entrilobular nodules and tree-in-bud opacities in right lower lobe. There are a few scattered nodules in the other lobes. The largest nodule measures 10 mm in right lower lobe. No pleural effusion. The heart size is normal. There are coronary artery calcifications. No pericardial effusion. There is a l arge sliding hiatal hernia. The liver and spleen are normal. The gallbladder is distended and contain s a gallstone. The pancreas and adrenal glands are normal. There are cysts in the kidneys measuring u p to 16 mm on the right. The prostate is mildly enlarged. There are no dilated loops of bowel. The ap pendix is normal. There is fat stranding superficial to right common femoral artery, consistent with small hematoma from recent cardiac catheterization. There are no pathologically enlarged lymph nodes. There is no free intraperitoneal fluid. There is a benign bone island in right innominate bone. Ther e is mild chronic anterior wedging of T10 and T11 vertebral bodies. There is moderate lumbar spondylo sis. IMPRESSION: 1. Large sliding hiatal hernia. 2. Cholelithiasis. Gallbladder distention may be secondary to fasting. Correlate with physical exam t o exclude acute cholecystitis. 3. Bronchiectasis and pulmonary nodules, likely chronic or recurrent infection. Noncontrast low-dose chest CT is recommended in 3 months. Reviewed, dictated and finalized at location A. [employer]TER IMPRESSION: 1. Large sliding hiatal hernia. 2. Cholelithiasis. Gallbladder distention may be secondary to fasting. Correlat e with physical exam to exclude acute cholecystitis. 3. Bronchiectasis and pulmonary nodules, likely chronic or recurrent infection. Noncontrast low-dose chest CT is recommended in 3 months.
--- NOTE | 2020-06-05 08:05 | ED.BACK ---
HPI - Back Pain/Injury General Chief Complaint: Back Pain/Injury Stated Complaint: Back pain Time Seen by Provider: 06/05/20 07:37 Source: patient Mode of arrival: ambulatory Limitations: no limitations History of Present Illness HPI Narrative: This patient is a 75 year old male with history of chronic back pain, CAD s/p stent, CHF who presents for evaluation of back pain. He states yesterday around 5 pm he developed worsening lower back pain. He reports this pain radiates into both buttocks. He reports history of chronic back pain. He took ibuprofen 800 mg last night. His pain is currently 7/10. He denies lower extremity weakness, numbness, or tingling. He denies urinary or bowel incontinence or retention. He denies abdominal pain. Related Data Home Medications Medication Instructions Recorded Confirmed ferrous sulfate 325 mg PO BID 05/17/20 06/05/20 albuterol sulfate 1 puff INHALATION Q6H PRN 06/05/20 06/05/20 Allergies Allergy/AdvReac Type Severity Reaction Status Date / Time Influenza Virus Vaccines Allergy Unknown Rash Verified 05/17/20 21:51 Review of Systems Review of Systems: All systems reviewed & are unremarkable except as noted in HPI and below Constitutional: Constitutional: Denies chills and Denies fever(s) Cardiovascular: Cardiovascular: Denies chest pain Gastrointestinal: Gastrointestinal: Denies abdominal pain, Denies diarrhea, Reports nausea and Denies vomiting Genitourinary: Genitourinary: Denies hematuria, Denies oliguria, Denies urinary frequency and Denies urinary incontinence Musculoskeletal: Musculoskeletal: Reports back pain and Reports muscle cramps Neurologic: Denies focal weakness and Denies weakness PMF Past Medical History Medical History (Updated 06/05/20 @ 18:34 by Eveline Hutchinson MD) Chronic respiratory failure with hypoxia, on home oxygen therapy Congestive heart failure Possible LV thrombus of apex life vest was approved. EF grade 1 diastolic with EF 25-30% COPD (chronic obstructive pulmonary disease) Hyperlipidemia Hypertension S/P ORIF (open reduction internal fixation) fracture Right ankle Surgical History Surgical History (Updated 06/05/20 @ 13:43 by Libby Quiroga NP) H/O cardiac catheterization H/O heart artery stent H/O: vasectomy Family History Family History (Updated 06/05/20 @ 13:47 by Libby Quiroga NP) Sibling Accelerated phase chronic myeloid leukemia 1 brother Sibling Lung cancer To brothers Mother Emphysema lung Sibling Cerebrovascular accident Social History Social History (Updated 06/05/20 @ 13:48 by Libby Quiroga NP) Social History: The patient lives with his . She is a durable power legislators for healthcare. He has 5 children. He desires to be a full code. He is retired from [email or web address]. He is a former smoker. He does not use any marijuana or illicit drugs. He said he did use marijuana when he was younger. No alcohol. Smoking packs per day: 1 Smoking cigarettes per day: 20.0 Smoking status: Former smoker Tobacco type: cigarettes Second hand tobacco smoke exposure: No Smoking end date: 07/21/14 Alcohol intake: former Substance use: former Additional living arrangements comments: lives with son and [id number] Gender identity (if verbalized by the patient): Male Spiritual care concerns: No Exam Const: General: alert Orientation/consciousness: patient oriented x3 HENMT: Head: normocephalic and atraumatic General nose exam: No nasal polyps present Face and sinus: face symmetric Throat: uvula midline Eyes: EOM: EOMs intact bilaterally Chest: Chest palpation & inspection: normal inspection of the chest Resp: Effort & Inspection: normal respiratory effort, no retractions and uses accessory muscles Auscultation: clear to auscultation bilaterally Cardio: Rate: regular rate Rhythm: regular rhythm Heart sounds: Murmur heart sound present GI:
[2020-06-05 08:08] LABS: Basophils Absolute Auto 0.1 K/mm3 (0.0-0.1); Basophils Percent Auto 0.8 % (0.2-1.2); Eosinophils Absolute Auto 0.1 K/mm3 (0-0.3); Eosinophils Percent Auto 0.9 % (0-4.4); Immature Granulocyte Absolute 0.03 K/mm3 (0.00-0.031); Immature Granulocyte Percent A 0.4 % (0-0.5); Lymphocytes Absolute Auto 1.58 K/mm3 (0.9-3.2); Lymphocytes Percent Auto 20.6 % (18.3-44.2); Mean Platelet Volume 10.3 fl (7.4-10.4); Monocytes Absolute Auto 0.4 K/mm3 (0.1-0.6); Monocytes Percent Auto 5.5 % (2.6-8.5); Neutrophils Absolute Auto 5.5 K/mm3 (1.3-6.7); Neutrophils Percent Auto 71.8 % (45.5-73.1); Platelet Count Result 386 k/mm3 (150-375); Red Blood Count 2.03 M/mm3 (4.6-6.20); White Blood Count 7.7 K/mm3 (4.5-10.0)
[2020-06-05 08:14] LABS: Add Urine Microscopic? YES; Appearance Urine Clear (Clear); Bilirubin Urine Negative (Negative); Blood Urine Negative (Negative); Color Urine Yellow (Yellow); Glucose Urine UA Negative (Negative); Ketones Urine Trace mg/dL (Negative); Leukocyte Esterase Ur Negative LEU/UL (Negative); Nitrate Urine Negative (Negative); Protein Urine Negative (Negative); RBC Urine 0-2 /hpf (0-2); Specific Grav Ur 1.018 (1.001-1.035); Urobilinogen Urine Negative mg/dL (<2.0); WBC Urine 0-3 /hpf
[2020-06-05 08:17] LABS: Hemoglobin 6.3 g/dL (14.0-18.0)
[2020-06-05 08:18] LABS: Hematocrit 19.7 % (42.0-52.0); INR 1.5; Prothrombin Time 18.3 Seconds (11.1-14.7)
[2020-06-05 08:19] LABS: Partial Thromboplastin Time 28.3 SECONDS (22.3-36.8)
[2020-06-05] MEDS: PANTOPRAZOLE SODIUM IV 40 MG VIAL IV PUSH ×2 (08:51→20:49)
[2020-06-05] MEDS: BACLOFEN 5 MG TABLET PO (08:51)
[2020-06-05 09:12] LABS: Alanine Aminotransferase 14 U/L (4-50); Albumin Level 3.2 g/dL (3.5-5.1); Alkaline Phosphatase 65 U/L (38-126); Anion Gap 5 mmol/L (8-16); Aspartate Amino Transferase 25 U/L (17-59); Bilirubin,Total 0.3 mg/dL (0.2-1.3); Blood Urea Nitrogen 17 mg/dL (9-20); Calcium 7.7 mg/dL (8.4-10.2); Carbon Dioxide 30 mmol/L (22-30); Chloride 103 mmol/L (98-107); Estimated CRCL calculation 76 ml/min; Estimated Glomerular Filt Rate > 60; Glucose 111 mg/dL (75-110); Potassium 3.8 mmol/L (3.4-5.0); Sodium 138 mmol/L (137-145)
--- NOTE | 2020-06-05 12:37 | ADMGEN ---
This patient, Pb Gunderson, was admitted to Medical Room 241-. Patient/family oriented to hospital policies and general routines including ID bracelet, bed and alarms, visiting hours, pain management, procedures, bathroom and other care routines, personal items, smoking policy, room service/diet, and visiting hours. Information on how to activate the Rapid Response Team has been discussed. Patient/Family are encouraged to report perceived risks to care and to ask questions if they do not understand what they are told or what they should do.
--- NOTE | 2020-06-05 13:25 | PM.IMHP ---
H&P: HPI History of Present Illness Date/Time: 06/05/20 13:25 Chief complaint: Acute Anemia,Upper GI Bleeding Narrative: Pb Gunderson is a 75 year old male Who was just discharged from here on 05/20/2020. The patient had on non STEMI at that time. He also has COPD with home oxygen, hypertension and history of tobacco abuse. Patient had chest pain at that time he went for cardiac catheterization he was found to have an anterior [address]. He underwent a primary PCI/JESSY x1 proximal LAD. His ejection fraction of 10-15%. The patient has been on Xarelto and aspirin. The patient has been having severe lower pain with sciatic pain down both legs. He has been taking a large amount of ibuprofen with this as well. The patient had a possible LV thrombus at the apex and a LifeVest was approved for him. That is why patient was discharged on Xarelto at that time. Blood today and his H&H is 6.3 and 19.7. He is currently receiving a blood transfusion. GI has been consulted. The patient stated his last colonoscopy was about 10 years ago and it was all normal. Patient chronically wears oxygen at home at 3 L. so shortness of breath has not changed. However the patient stated that his pain was so severe that he wanted to overdose on some pills to relieved of his pain. He scored high on his suicide scale and now has to be placed on suicide precautions. When patient was discharged earlier this month his H&H was normal. Review of Systems Review of Systems: All systems reviewed & are unremarkable except as noted in HPI and below Constitutional: Constitutional: Reports as per HPI and Reports no additional constitutional complaints Eyes: Eyes: Reports as per HPI and Reports no additional eye complaints ENT: Reports system reviewed and no additional complaints, except as documented and Reports Normal hearing present Cardiovascular: Cardiovascular: Reports no additional cardiovascular complaints Respiratory: Respiratory: Reports no additional respiratory complaints and Reports no additional respiratory complaints Gastrointestinal: Gastrointestinal: Reports as per HPI and Reports no additional gastrointestinal complaints Musculoskeletal: Musculoskeletal: Reports no additional musculoskeletal complaints Integumentary/Breasts: Skin/Breast: Reports system reviewed and no additional complaints, except as docu and Reports as per HPI Neurologic: Reports system reviewed and no additional complaints, except as documented, Reports as per HPI and Reports Normal hearing present Psychiatric: Psychiatric: Reports no additional psychiatric complaints and Reports as per HPI Endocrine: Endocrine: Reports no additional endocrine complaints Hematologic/Lymphatic: Hematologic/Lymphatic: Reports no additional hematologic/lymphatic complaints Allergic/Immunologic: Allergic/Immunologic: Reports no additional allergic/immunologic complaints [facility] Past Medical History Medical History (Updated 06/05/20 @ 13:52 by Libby Quiroga NP) Chronic respiratory failure with hypoxia, on home oxygen therapy Congestive heart failure Possible LV thrombus of apex life vest was approved. EF grade 1 diastolic with EF 25-30% COPD (chronic obstructive pulmonary disease) Hyperlipidemia Hypertension S/P ORIF (open reduction internal fixation) fracture Right ankle Surgical History Surgical History (Updated 06/05/20 @ 13:43 by Libby Quiroga NP) H/O cardiac catheterization H/O heart artery stent H/O: vasectomy Family History Family History (Updated 06/05/20 @ 13:47 by Libby Quiroga NP) Sibling Accelerated phase chronic myeloid leukemia 1 brother Sibling Lung cancer To brothers Mother Emphysema lung Sibling Cerebrovascular accident Social History Social History (Updated 06/05/20 @ 13:48 by Libby Quiroga NP) Social History: The patient lives with his . She is a durable power managing attorney for healthcare. He has 5 children. H
--- NOTE | 2020-06-05 13:55 | WPDGICN ---
Assessment and Plan Assessment and plan (1) Occult blood in stools: Code(s): R19.5 - Other fecal abnormalities Status: Acute Assessment and Plan: Patient with occult blood in stool noted on presentation. Patient denies any obvious signs of active bleeding. Plan is to cover with proton pump inhibitor for possible ulcer disease. Evaluate with endoscopy when patient is felt to be stable. (2) Anemia due to blood loss: Code(s): D50.0 - Iron deficiency anemia secondary to blood loss (chronic) Status: Acute Assessment and Plan: Patient with significant anemia current hemoglobin of approximately 6-1/2 when discharge from the hospital 3-4 weeks ago hemoglobin was 12 in felt to be normal. Suspect GI blood loss given his Hemoccult-positive stools and rather abrupt change. Plan is to treat for potential ulcer disease an EGD will be planned over the next day or 2 anticoagulation should be held until this is accomplished. (3) Suicide ideation: Code(s): R45.851 - Suicidal ideations Status: Acute (4) Apical mural thrombus with acute WA: Code(s): I21.29 - ST elevation (STEMI) myocardial infarction involving other sites Status: Acute Assessment and Plan: Patient with suspected mural thrombus at time of last admission 3 weeks ago. Patient was placed on Xarelto anticoagulation at that time. Currently because of significant GI blood loss. Xarelto will need to be held. Need to reassess need for anticoagulation at this time and hold if at all possible. An EGD will be planned to assess for safety of continued anticoagulation. (5) Chronic respiratory failure with hypoxia, on home oxygen therapy: Code(s): J96.11 - Chronic respiratory failure with hypoxia; Z99.81 - Dependence on supplemental oxygen Status: Chronic GI Consult Note Consult date/time: 06/05/20 13:55 HPI: Pb Gunderson is a 75 year old male seen in evaluation at the request of the emergency room. Patient has recent history of myocardial infarction discharge from the hospital 05/20/2020. During that hospital stay was felt to have a mural thrombus and was placed on Xarelto anticoagulation. Patient has done well until today when he presented to the hospital because of back pain he felt he had see addict going down his right posterior thigh. In the emergency room blood work was obtained revealing profound anemia with a hemoglobin 6.3, at the time of discharge 3 weeks ago his hemoglobin was normal at approximately 12. Patient denies any obvious signs of blood loss. His weight appetite bowel movements are normal. He denies any pain. He has been eating well. He states he had has taken iron for many years in his stools are always a little darkish. Upon investigation upon presentation to the floor was felt that he had suicidal ideation currently will be on close observation and suicide watch. Review of Systems Review of Systems: All systems reviewed & are unremarkable except as noted in HPI and below PMFSH Past Medical History Medical History (Updated 06/05/20 @ 14:12 by Lee Barba MD) Chronic respiratory failure with hypoxia, on home oxygen therapy Congestive heart failure Possible LV thrombus of apex life vest was approved. EF grade 1 diastolic with EF 25-30% COPD (chronic obstructive pulmonary disease) Hyperlipidemia Hypertension S/P ORIF (open reduction internal fixation) fracture Right ankle Surgical History Surgical History (Updated 06/05/20 @ 13:43 by Libby Quiroga NP) H/O cardiac catheterization H/O heart artery stent H/O: vasectomy Family History Family History (Updated 06/05/20 @ 13:47 by Libby Quiroga NP) Sibling Accelerated phase chronic myeloid leukemia 1 brother Sibling Lung cancer To brothers Mother Emphysema lung Sibling Cerebrovascular accident Social History Social History (Updated 06/05/20 @ 13:48 by Libby Quiroga NP) Social History: The
[2020-06-05] MEDS: ACETAMINOPHEN 500 MG TABLET 1000 MG PO (15:30)
--- NOTE | 2020-06-05 16:59 | PM.CNCAR ---
Assessment and Plan Additional Plan 75-year-old man with: Recent diagnosis of ischemic heart disease and unfortunately very low ejection fraction. 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 Because of the suspicion of a left ventricular apical thrombus he was also anticoagulated with Xarelto in addition to dual anti-platelet therapy. On this regimen of triple therapy obviously has he has had a significant bleeding event as his hemoglobin is markedly depressed and was normal earlier in the month. It is very important that he remain on dual anti-platelet therapy but systemic anticoagulation is certainly not mandatory and should be stopped in this setting. In addition to this he should refrain from using nonsteroidal anti-inflammatory agents Bala Gallagher MD [facility] History of Present Illness History of Present Illness Consult date/time: 06/05/20 16:59 Reason For Visit: Acute Anemia,Upper GI Bleeding Narrative: This is a 75-year-old man I was notified of the consultation request this afternoon. He is known history of coronary artery disease and was recently in the hospital undergoing a percutaneous revascularization procedure and being seen by my partners, Dr.: Dr. Self and Dr. Key. That chart was reviewed in detail and the patient was seen in his room this evening. There is no official consult order on the chart from what I can see. The patient is not reporting any cardiovascular symptoms he states he came to the emergency room earlier today because of significant sciatic nerve pain. He does not say that he was particularly concerned that he was bleeding he denies any hemoptysis hematemesis hematuria hematochezia. He denies any melanotic stool. Interestingly in the emergency room while he was being evaluated his hemoglobin level was in the vicinity of 6 g which is a not dramatically different from his normal hemoglobin of 14 g during his previous admission. The patient came into the hospital recently with symptoms of ischemic chest pain. He apparently had stuttering ischemic pain for a number of days and was found to have a high-grade acute looking lesion in the mid LAD that was treated successfully with PTCA and the deployment of a drug-eluting stent by Dr. Self. He was also found to have a very low ejection fraction of 10-15% by LV g and by ECHO. He was felt to have a probable left ventricular apical thrombus by Dr. Key and he was placed on systemic anticoagulation with Xarelto in addition to aspirin and clopidogrel for his coronary stent. He appears to be doing well as far cigar cardiac symptoms are concerned he says he has not had any chest pain that he can recall since his PCI. Because of his low ejection fraction he has a life vest device ordered and he is wearing it this evening. He has no other significant complaints. The chart states he uses a fair amount of ibuprofen for musculoskeletal pain as well as the sciatic discomfort that he came in the hospital with. The patient states that he takes no more than 2 ibuprofen tablets daily. Review of Systems Constitutional: Constitutional: Reports no additional constitutional complaints Eyes: Eyes: Reports no additional eye complaints ENT: Reports system reviewed and no additional complaints, except as documented Cardiovascular: Cardiovascular: Reports as per HPI Respiratory: Respiratory: Reports no additional respiratory complaints Gastrointestinal: Gastrointestinal: Reports no additional gastrointestinal complaints Musculoskeletal: Musculoskeletal: Reports as per HPI Integumentary/Breasts: Skin/Breast: Reports system reviewed and no additional complaints, except as docu Neurologic: Reports system reviewed and no additional complaints, except as documented Endocrine: Endocrine: Reports no additional endocrine complaints Hematologic/Lymphatic: Hematologic/Lymphatic: Reports no additional hematologic/lymphatic complaints Allergic/Immu
[2020-06-05] MEDS: traMADol HCL (*CRX) 50 MG TABLET PO (18:04)
[2020-06-05] MEDS: LACTATED RINGERS 1,000 ML 75 ML IV CONT (18:09)
[2020-06-05 19:01] LABS: Hematocrit 24.7 % (42.0-52.0); Hemoglobin 7.9 g/dL (14.0-18.0)
[2020-06-05] MEDS: MENTHOL 10% / METHYL SALICYLATE 15% 57 GM TUBE 1 APPLIC TOPICAL (19:48)
[2020-06-06] VITALS (14 sets, daily range): BP systolic 116–149; BP diastolic 40–67; PULSE 55–104; RESP 14–20; TEMP 36.6–36.7; O2SAT 90–100
[2020-06-06 05:54] LABS: Basophils Percent Auto 0.7 % (0.2-1.2); Eosinophils Absolute Auto 0.3 K/mm3 (0-0.3); Eosinophils Percent Auto 5.3 % (0-4.4); Hematocrit 24.2 % (42.0-52.0); Hemoglobin 7.8 g/dL (14.0-18.0); Immature Granulocyte Absolute 0.02 K/mm3 (0.00-0.031); Immature Granulocyte Percent A 0.3 % (0-0.5); Lymphocytes Absolute Auto 1.75 K/mm3 (0.9-3.2); Lymphocytes Percent Auto 29.8 % (18.3-44.2); Mean Corpuscular HGB Conc 32.2 g/dl (32-36); Mean Corpuscular Hemoglobin 31.5 pg (26-34); Mean Corpuscular Volume 97.6 fl (80-100); Mean Platelet Volume 10.4 fl (7.4-10.4); Monocytes Absolute Auto 0.5 K/mm3 (0.1-0.6); Monocytes Percent Auto 7.8 % (2.6-8.5); Neutrophils Absolute Auto 3.3 K/mm3 (1.3-6.7); Neutrophils Percent Auto 56.1 % (45.5-73.1); Nucleated Red Blood Cells Perc 0.3 % (0.0-0.2); Platelet Count Result 258 k/mm3 (150-375); Red Blood Count 2.48 M/mm3 (4.6-6.20); Red Cell Distribution Width 16.8 % (11.5-14.5); White Blood Count 5.9 K/mm3 (4.5-10.0)
[2020-06-06 06:04] LABS: Lactic Acid Reflex 0.7 mmol/L (0.7-2.1)
[2020-06-06 06:10] LABS: Alanine Aminotransferase 12 U/L (4-50); Albumin Level 2.8 g/dL (3.5-5.1); Alkaline Phosphatase 60 U/L (38-126); Anion Gap 1 mmol/L (8-16); Aspartate Amino Transferase 23 U/L (17-59); Bilirubin,Total 0.6 mg/dL (0.2-1.3); Blood Urea Nitrogen 15 mg/dL (9-20); Calcium 7.9 mg/dL (8.4-10.2); Carbon Dioxide 34 mmol/L (22-30); Chloride 104 mmol/L (98-107); Estimated CRCL calculation 62 ml/min; Estimated Glomerular Filt Rate > 60; Glucose 85 mg/dL (75-110); Potassium 3.9 mmol/L (3.4-5.0); Sodium 139 mmol/L (137-145)
--- NOTE | 2020-06-06 07:33 | WPDANESEPPF ---
Anes - Initial Pre Proc Eval Date/Time: 06/06/20 07:33 Surgeon: Gina Murphy MD Pre Op Diagnosis: Acute Anemia,Upper GI Bleeding Patient Data Age: 75 Gender: M Height: 1.83 m Weight: 88 kg Last Vital Signs Temp 37.1 C 06/05/20 22:00 Pulse 58 L 06/06/20 04:00 Resp 20 06/05/20 22:00 BP 138/55 L 06/05/20 22:00 Pulse Ox 98 06/05/20 22:00 Allergies Allergy/AdvReac Type Severity Reaction Status Date / Time Influenza Virus Vaccines Allergy Unknown Rash Verified 05/17/20 21:51 Home Medications Medication Instructions Recorded Confirmed Type ferrous sulfate 325 mg PO BID 05/17/20 06/05/20 History losartan 12.5 mg PO DAILY #15 tablet 05/20/20 06/05/20 Rx metoprolol succinate 12.5 mg PO DAILY #15 tablet 05/20/20 06/05/20 Rx rivaroxaban [Xarelto] 20 mg PO DAILY #30 tablet 05/20/20 06/05/20 Rx spironolactone 25 mg PO QAM #30 tablet 05/20/20 06/05/20 Rx albuterol sulfate 1 puff INHALATION Q6H PRN 06/05/20 06/05/20 History Laboratory Tests 06/05/20 06/05/20 06/05/20 08:00 08:00 08:00 WBC 7.7 K/mm3 K/mm3 (4.5-10.0) RBC 2.03 M/mm3 L M/mm3 (4.6-6.20) Hgb 6.3 g/dL L* D g/dL (14.0-18.0) Hct 19.7 % L* % (42.0-52.0) MCV 97.0 fl fl (80-100) MCH 31.0 pg pg (26-34) MCHC 32.0 g/dl g/dl (32-36) RDW 17.0 % H % (11.5-14.5) Plt Count 386 k/mm3 H k/mm3 (150-375) MPV 10.3 fl fl (7.4-10.4) Immature Gran % (Auto) 0.4 % % (0-0.5) Neut % (Auto) 71.8 % % (45.5-73.1) Lymph % (Auto) 20.6 % % (18.3-44.2) [place] % (Auto) 5.5 % % (2.6-8.5) Eos % (Auto) 0.9 % % (0-4.4) Baso % (Auto) 0.8 % % (0.2-1.2) Lymph # (Auto) 1.58 K/mm3 K/mm3 (0.9-3.2) [place] # (Auto) 0.4 K/mm3 K/mm3 (0.1-0.6) Eos # (Auto) 0.1 K/mm3 K/mm3 (0-0.3) Baso # (Auto) 0.1 K/mm3 K/mm3 (0.0-0.1) Abs Immat Gran (auto) 0.03 K/mm3 K/mm3 (0.00-0.031) Absolute Neuts (auto) 5.5 K/mm3 K/mm3 (1.3-6.7) Absolute Nucleated RBC 0.0 K/mm3 K/mm3 (0.0-0.012) Nucleated RBC % 0.0 % % (0.0-0.2) PT 18.3 Seconds H Seconds (11.1-14.7) INR 1.5 APTT 28.3 SECONDS SECONDS (22.3-36.8) Sodium Potassium Chloride Carbon Dioxide Anion Gap BUN Creatinine Estim Creat Clear Calc Estimated GFR Glucose Lactic Acid Calcium Total Bilirubin AST ALT Alkaline Phosphatase Total Protein Albumin TSH (Reflex) Free T4 Urine Color Yellow (Yellow) Urine Appearance Clear (Clear) Urine pH 5.0 (5.0-9.0) Ur Specific [place] 1.018 (1.001-1.035) Urine Protein Negative mg/dL mg/dL (Negative) Urine Glucose (UA) Negative mg/dL mg/dL (Negative) Urine Ketones Trace mg/dL mg/dL (Negative) Ur Blood (Man) Negative (Negative) Urine Nitrate Negative (Negative) Urine Bilirubin Negative (Negative) Urine Urobilinogen Negative mg/dL mg/dL (<2.0) Leukocyte Esterase Rfl Negative LANCE/UL LANCE/UL (Negative) Urine RBC 0-2 /hpf /hpf (0-2) Urine WBC 0-3 /hpf /hpf Blood Type Antibody Screen Crossmatch 06/05/20 06/05/20 06/05/20 08:38 09:16 11:15 WBC RBC Hgb Cancelled Hct Cancelled MCV MCH MCHC RDW Plt Count MPV Immature Gran % (Auto) Neut % (Auto) Lymph % (Auto) [place] % (Auto) Eos % (Auto)
[2020-06-06] MEDS: LACTATED RINGERS 1,000 ML 75 ML IV CONT (07:45)
[2020-06-06] MEDS: PANTOPRAZOLE SODIUM IV 40 MG VIAL IV PUSH (08:24)
[2020-06-06 08:30] LABS: Free T4 Free Thyroxine Reflex 0.88 ng/dL (0.78-2.19)
[2020-06-06 09:18] LABS: Total Triiodothyronine (T3) 0.93 NG/ML (0.97-1.69)
--- NOTE | 2020-06-06 09:31 | PC.NURSE ---
pt. left floor at 09:32 for procedure in the GI lab.
[2020-06-06] MEDS: LACTATED RINGERS 1,000 ML 150 ML IV CONT (09:38)
[2020-06-06] MEDS: BENZOCAINE (*SP) 60 ML SPRAY CAN (HURRICAINE) 1 SPRAY MUCOUS MEM (09:49)
[2020-06-06] MEDS: CLOPIDOGREL BISULFATE 75 MG TABLET PO (11:13)
[2020-06-06] MEDS: ASPIRIN 81 MG ENTERIC TABLET PO (11:13)
--- NOTE | 2020-06-06 11:51 | PM.PNCARD ---
Progress Note: A&P Additional Plan 75-year-old man with: Severe ischemic cardiomyopathy recent PCI to the mid LAD as detailed in previous notes. Admission with sciatic pain and marked anemia. Despite dramatic drop in hemoglobin no obvious source of blood loss has been identified. I will today resume his metoprolol and losartan. Obviously triple therapy with Xarelto as well 0 was not well tolerated. Bala Gallagher MD [facility] Subjective Date/time seen: Date of service: 06/06/20 11:51 Interval history: Follow-up visit in this 75-year-old man with: Recent acute coronary syndrome, late presentation with high-grade mid LAD stenosis. Patient underwent successful PCI of this lesion as detailed in previous notes. Unfortunately because of late presentation has very low ejection fraction. In addition to this had suspected left ventricular apical thrombus. Rehospitalized this time for significant anemia. Surprisingly despite the dramatic drop in hemoglobin there was no clinically overt bleeding. Endoscopy this morning results have been reviewed really do not show any obvious source of blood loss. Asymptomatic feels fairly well. Reviewed again with the patient the importance he of maintaining dual anti-platelet therapy. I will resume his modest dose of metoprolol and losartan today. Systemic anticoagulation will not be resumed at this time Exam Const: General: comfortable and no acute distress HENMT: Mouth: Yes moist mucous membranes Eyes: Sclera: sclerae normal Pupils: Equal, round and reactive pupils present Neck: Neck: supple and no JVD Resp: Effort & Inspection: normal respiratory effort Auscultation: clear to auscultation bilaterally Cardio: Other: PMI enlarged and laterally displaced no obvious murmur or gallop GI: GI Palp: Yes Soft to palpation Auscultation: normal bowel sounds Skin: General skin exam: normal color Neuro: Cognition (Neuro): normal cognition Extrem: General: normal to inspection Objective Data Vital Signs Vital Signs: Vital Signs - 24 hr 06/05/20 11:59 06/05/20 12:04 06/05/20 12:38 Temperature 36.6 C Pulse Rate 98 67 78 Respiratory Rate 19 19 16 Blood Pressure 121/51 L 125/39 L 126/56 L Pulse Oximetry 97 97 100 06/05/20 12:44 06/05/20 13:30 06/05/20 14:55 Temperature 36.6 C 36.6 C 36.4 C L Pulse Rate 78 70 66 Respiratory Rate 16 16 16 Blood Pressure 126/56 L 123/53 L 123/55 L Pulse Oximetry 100 99 98 06/05/20 15:10 06/05/20 16:00 06/05/20 16:10 Temperature 36.2 C L 36.5 C Pulse Rate 77 99 76 Respiratory Rate 16 16 Blood Pressure 120/59 L 137/49 L Pulse Oximetry 100 97 06/05/20 17:09 06/05/20 18:05 06/05/20 20:00 Temperature 36.6 C 36.1 C L Pulse Rate 77 81 93 Respiratory Rate 16 16 3 L Blood Pressure 126/45 L 137/41 L Pulse Oximetry 97 98 06/05/20 22:00 06/06/20 00:00 06/06/20 04:00 Temperature 37.1 C Pulse Rate 72 56 L 58 L Respiratory Rate 20 Blood Pressure 138/55 L Pulse Oximetry 98 06/06/20 06:00 06/06/20 08:00 06/06/20 09:40 Temperature 36.6 C 36.6 C Pulse Rate 72 72 Respiratory Rate 16 16 Blood Pressure 132/40 L 149/60 H Pulse Oximetry 94 100 90 06/06/20 10:02 06/06/20 10:12 06/06/20 10:22 Temperature Pulse Rate 73 80 60 Respiratory Rate 17 18 14 Blood Pressure 119/67 134/56 L 116/52 L Pulse Oximetry 98 98 100 Intake/Output Intake/Output: Intake & Output 06/03/20 06/04/20 06/05/20 06/06/20 23:59 23:59 23:59 23:59 Intake Total 800 1300 Output Total 2 Balance 800 1298 Meds/Results Medications: Active Medications Generic Name Dose Route Start Last Admin Trade Name Freq PRN Reason Stop Dose Admin Albuterol 1 puff 06/05/20 14:03 Albuterol Sulfate (*Sp) Aerosol 1 Puff INHALATION Q6H PRN Shortness Of Breath Aspirin 81 mg 06/06/20 09:00 06/06/20 11:13 Aspirin 81 Mg Enteric Tablet PO 81 mg QAM DWAYNE Administration Clopidogrel Bisulfate 75 mg 06/06/20 09:0
--- NOTE | 2020-06-06 12:46 | PM.IMPN ---
Progress Note: A&P Assessment and Plan (1) Acute low back pain: Code(s): M54.5 - Low back pain Status: Acute Assessment and Plan: States that pain is well controlled at the moment. Continue pain management. (2) Anemia due to blood loss: Code(s): D50.0 - Iron deficiency anemia secondary to blood loss (chronic) Status: Acute Assessment and Plan: S/p EGD No acute bleeding. Report reviewed. Appreciate GI note. (3) Occult blood in stools: Code(s): R19.5 - Other fecal abnormalities Status: Acute Assessment and Plan: Likely oral blood thinners contributing to it. (4) Suicide ideation: Code(s): R45.851 - Suicidal ideations Status: Acute Assessment and Plan: Suicidal precautions. Sitter at bed side 1:1 Denies any thoughts of hurting himself at the moment. (5) Chronic respiratory failure with hypoxia, on home oxygen therapy: Code(s): J96.11 - Chronic respiratory failure with hypoxia; Z99.81 - Dependence on supplemental oxygen Status: Chronic Assessment and Plan: Continue supplemental O2. (6) COPD (chronic obstructive pulmonary disease): Code(s): J44.9 - Chronic obstructive pulmonary disease, unspecified Status: Chronic Assessment and Plan: Stable Continue home meds. Subjective Date/time seen: 06/06/20 12:46 I feel fine. Review of Systems Review of Systems: Narrative: No complains today in the morning. Constitutional: Comments: no fevers, no rigors, no chills. Eyes: Comments: No vision changes. ENT: Comments: no ear ache, no nasal discharge, no throat pain. Cardiovascular: Comments: no chest pain, no pnd, no orthopnea. Respiratory: Comments: no cough, no sputum production. Gastrointestinal: Comments: no n/v/abdominal pain. Musculoskeletal: Comments: lower back pain. Integumentary/Breasts: Comments: no rashes. Neurologic: Comments: no sensory motor deficit Psychiatric: Psychiatric: Reports other (Patient expressed that he wanted to yesterday but today denies any thou) Exam Narrative: Exam Narrative: Lying in bed. Const: General: cooperative, healthy appearing, comfortable, well developed, alert, awake and Physically active Nutritional Appearance: average body habitus Orientation/consciousness: patient oriented x3 HENMT: Head: normal to inspection and normocephalic Ears: hearing grossly normal bilaterally General nose exam: Normal external nose present Eyes: General: appearance normal, both eyes and all related structures Pupils: Equal, round and reactive pupils present EOM: EOMs intact bilaterally Neck: Neck: full ROM, no lymphadenopathy and no JVD Resp: Effort & Inspection: normal respiratory effort Auscultation: clear to auscultation bilaterally Cardio: Jugular venous distension: no JVD Rate: regular rate Rhythm: regular rhythm GI: Inspection: normal to inspection GI Palp: Yes Soft to palpation and Yes No hepatosplenomegaly present Skin: General skin exam: normal color Lesions: no lesions Rashes: no rashes Neuro: General: patient oriented x3 and CN's II-XI intact bilaterally Cranial nerves: Yes CN's II-XII intact bilaterally and Yes Bilaterally intact EOM present Extrem: General: normal to inspection, full ROM and no pedal edema Objective Data Vital Signs Vital Signs: Vital Signs - 24 hr 06/05/20 13:30 06/05/20 14:55 06/05/20 15:10 Temperature 98 F 97.5 F L 97.2 F L Pulse Rate 70 66 77 Respiratory Rate 16 16 16 Blood Pressure 123/53 L 123/55 L 120/59 L Pulse Oximetry 99 98 100 06/05/20 16:00 06/05/20 16:10 06/05/20 17:09 Temperature 97.7 F 97.8 F Pulse Rate 99 76 77 Respiratory Rate 16 16 Blood Pressure 137/49 L 126/45 L Pulse Oximetry 97 97 06/05/20 18:05 06/05/20 20:00 06/05/20 22:00 Temperature 97 F L 98.7 F Pulse Rate 81 93 72 Respiratory Rate 16 3 L 20 Blood Pressure 137/41 L 138/55 L Pulse Oximetry 98 98 06/06/20 00:00 1
[2020-06-06] MEDS: LOSARTAN POTASSIUM 12.5 MG TABLET PO (12:53)
[2020-06-06] MEDS: METOPROLOL SUCCINATE EXT REL 12.5 MG TABCR PO (12:53)
[2020-06-06 13:25] LABS: IFOB Positive Control Positive; Immunochemical Fecal Occult Bl Negative (N)
[2020-06-06] MEDS: traMADol HCL (*CRX) 50 MG TABLET PO ×2 (15:47→21:17)
[2020-06-06] MEDS: DOCUSATE SODIUM 100 MG CAPSULE 200 MG PO (15:54)
[2020-06-06] MEDS: PANTOPRAZOLE 40 MG TABLET PO (21:12)
[2020-06-07] VITALS (8 sets, daily range): BP systolic 130–149; BP diastolic 60–64; PULSE 54–86; RESP 18–20; TEMP 36.3–36.6; O2SAT 95–99
[2020-06-07] MEDS: LACTATED RINGERS 1,000 ML 75 ML IV CONT (00:06)
[2020-06-07] MEDS: traMADol HCL (*CRX) 50 MG TABLET PO ×3 (03:17→15:26)
--- NOTE | 2020-06-07 08:39 | WPDGIPROGNO ---
Progress Note: A&P Assessment and Plan (1) Anemia due to blood loss: Code(s): D50.0 - Iron deficiency anemia secondary to blood loss (chronic) Status: Acute Assessment and Plan: Hemoglobin stable. No additional blood loss noted. Plan is to monitor hemoglobin after discharge. (2) Occult blood in stools: Code(s): R19.5 - Other fecal abnormalities Status: Acute (3) Duodenitis: Code(s): K29.80 - Duodenitis without bleeding Status: Acute Assessment and Plan: Duodenitis identified by endoscopy. Likely source of GI blood loss especially while he was anticoagulated. Plan to avoid nonsteroidal anti-inflammatory agents. Continue proton pump inhibitor for some time after discharge. (4) Suicide ideation: Code(s): R45.851 - Suicidal ideations Status: Acute (5) Apical mural thrombus with acute MT: Code(s): I21.29 - ST elevation (STEMI) myocardial infarction involving other sites Status: Acute Assessment and Plan: Mural thrombus noted on cardiology exam. Anticoagulation may be required. At present okay for Plavix and aspirin. I would prefer to defer a short time before restarting any stronger anticoagulation. At least a week. Subjective Date/time seen: 06/07/20 08:39 Patient alert and comfortable this morning. No additional bleeding noted. He denies abdominal pain. Currently tolerating diet without difficulty. Review of Systems Review of Systems: All systems reviewed & are unremarkable except as noted in HPI and below Exam Const: General: no acute distress HENMT: Other: Patient is anicteric. Throat is clear. Cardio: Rate: regular rate Rhythm: regular rhythm GI: GI Palp: Yes Soft to palpation Percussion: Yes normal to percussion Other: Abdomen is soft nontender with no organomegaly. Neuro: Cognition (Neuro): normal cognition Extrem: General: normal to inspection Objective Data Vital Signs Vital Signs: Vital Signs - 24 hr 06/06/20 09:40 06/06/20 10:02 06/06/20 10:12 Temperature 97.8 F Pulse Rate 72 73 80 Respiratory Rate 16 17 18 Blood Pressure 149/60 H 119/67 134/56 L Pulse Oximetry 90 98 98 06/06/20 10:22 06/06/20 12:00 06/06/20 12:53 Temperature Pulse Rate 60 97 100 Respiratory Rate 14 Blood Pressure 116/52 L Pulse Oximetry 100 06/06/20 14:00 06/06/20 16:00 06/06/20 20:00 Temperature 98.0 F Pulse Rate 69 72 104 H Respiratory Rate 20 Blood Pressure 139/52 L Pulse Oximetry 98 06/06/20 22:00 06/07/20 00:00 06/07/20 04:00 Temperature 97.9 F Pulse Rate 62 57 L 58 L Respiratory Rate 20 Blood Pressure 129/60 Pulse Oximetry 98 06/07/20 06:00 Temperature 97.8 F Pulse Rate 66 Respiratory Rate 18 Blood Pressure 130/60 Pulse Oximetry 99 Intake/Output Intake/Output: Intake & Output 06/04/20 06/05/20 06/06/20 06/07/20 23:59 23:59 23:59 23:59 Intake Total 800 2809 325 Output Total 2 Balance 800 2807 325 Meds/Results Medications: Active Medications Generic Name Dose Route Start Last Admin Trade Name Freq PRN Reason Stop Dose Admin Albuterol 1 puff 06/05/20 14:03 Albuterol Sulfate (*Sp) Aerosol 1 Puff INHALATION Q6H PRN Shortness Of Breath Aspirin 81 mg 06/06/20 09:00 06/06/20 11:13 Aspirin 81 Mg Enteric Tablet PO 81 mg QAM DWAYNE Administration Clopidogrel Bisulfate 75 mg 06/06/20 09:00 06/06/20 11:13 Clopidogrel Bisulfate 75 Mg Tablet PO 75 mg QAM DWAYNE Administration Docusate Sodium 200 mg 06/06/20 15:40 06/06/20 15:54 Docusate Sodium 100 Mg Capsule PO 200 mg Q12H PRN Administration Constipation Lactated Ringer's 1,000 mls @ 75 mls/hr 06/05/20 11:00 06/07/20 00:06 Lr - Lactated Ringers Iv IV CONT 75 mls/hr .[id number] DWAYNE Administration Labetalol HCl 5 mg 06/05/20 14:06 Labetalol Hcl Inj 100 Mg/20 Ml Vial IV PUSH Q4H PRN Hypertension Losartan Potassium 12.5 mg 06/06/20 0
--- NOTE | 2020-06-07 09:20 | WPDANESPN ---
Anes - Prog Note Post-Op Date/Time: 06/07/20 09:20 Cardiovascular status: normal Respiratory status: normal Airway patency: baseline Mental status: baseline Post-Op hydration status: normal Vital Signs: Last Vital Signs Temp 36.6 C 06/07/20 06:00 Pulse 66 06/07/20 06:00 Resp 18 06/07/20 06:00 BP 130/60 06/07/20 06:00 Pulse Ox 99 06/07/20 06:00 Pain Score (VAS): 0 I/O: Intake & Output 06/06/20 06/07/20 06/07/20 23:59 07:59 15:59 Intake Total 989 325 Balance 989 325 Laboratory Tests 06/06/20 05:19 06/06/20 05:19 06/06/20 13:12 Stl Occult Blood (IFOB) Negative Post-procedural complaints: none Patient Feedback: Patient satisfied with anesthetic care.
[2020-06-07] MEDS: CLOPIDOGREL BISULFATE 75 MG TABLET PO (09:26)
[2020-06-07] MEDS: LOSARTAN POTASSIUM 12.5 MG TABLET PO (09:27)
[2020-06-07] MEDS: PANTOPRAZOLE 40 MG TABLET PO (09:27)
[2020-06-07] MEDS: ASPIRIN 81 MG ENTERIC TABLET PO (09:27)
[2020-06-07] MEDS: METOPROLOL SUCCINATE EXT REL 12.5 MG TABCR PO (09:27)
--- NOTE | 2020-06-07 09:51 | PM.PNCARD ---
Progress Note: A&P Additional Plan 75-year-old gentleman with: Coronary artery disease recent late presentation with anterior non-STEMI had LAD stenting performed successfully but has very low ejection fraction. Patient re-presented this time with some sciatic pain but also with our markedly reduced hemoglobin and presumptive diagnosis of GI bleeding. As such Xarelto has been stopped. I am going to resume his spironolactone today for optimal suppression of his renal an angiotensin axis in the setting of his very low ejection fraction. No other cardiac issues to be evaluated during this hospital stay at this point. Discharge any time is okay with Cardiology and follow up as already scheduled in our office Bala Gallagher MD [facility] Subjective Date/time seen: Date of service: 06/07/20 09:51 Interval history: Follow-up visit in this 75-year-old man with: Recent acute coronary syndrome, late presentation with high-grade mid LAD stenosis. Patient underwent successful PCI of this lesion as detailed in previous notes. Unfortunately because of late presentation has very low ejection fraction. In addition to this had suspected left ventricular apical thrombus. Rehospitalized this time for significant anemia. Surprisingly despite the dramatic drop in hemoglobin there was no clinically overt bleeding. Endoscopy this morning results have been reviewed really do not show any obvious source of blood loss. Asymptomatic feels fairly well. No cardiovascular complaints. Reviewed with the patient that we will stop his systemic anticoagulation because of l serious hemorrhagic event. Dual anti-platelet therapy must be continued however. Exam Const: General: comfortable and no acute distress Other: Elderly white male appearing about his stated age a bit disheveled otherwise in no distress HENMT: Mouth: Yes moist mucous membranes Eyes: Sclera: sclerae normal Pupils: Equal, round and reactive pupils present Neck: Neck: supple and no JVD Thyroid: thyroid normal Other: Carotid pulses are intact bilaterally there are no audible bruits over the neck Resp: Effort & Inspection: normal respiratory effort Auscultation: clear to auscultation bilaterally Cardio: Rate: regular rate Rhythm: regular rhythm Other: PMI enlarged and laterally displaced no obvious murmur or gallop GI: Auscultation: normal bowel sounds Skin: General skin exam: normal color Neuro: Cranial nerves: Yes Equal, round and reactive pupils present Cognition (Neuro): normal cognition Extrem: General: normal to inspection Objective Data Vital Signs Vital Signs: Vital Signs - 24 hr 06/06/20 10:02 06/06/20 10:12 06/06/20 10:22 Temperature Pulse Rate 73 80 60 Respiratory Rate 17 18 14 Blood Pressure 119/67 134/56 L 116/52 L Pulse Oximetry 98 98 100 06/06/20 12:00 06/06/20 12:53 06/06/20 14:00 Temperature 36.7 C Pulse Rate 97 100 69 Respiratory Rate 20 Blood Pressure 139/52 L Pulse Oximetry 98 06/06/20 16:00 06/06/20 20:00 06/06/20 22:00 Temperature 36.6 C Pulse Rate 72 104 H 62 Respiratory Rate 20 Blood Pressure 129/60 Pulse Oximetry 98 06/07/20 00:00 06/07/20 04:00 06/07/20 06:00 Temperature 36.6 C Pulse Rate 57 L 58 L 66 Respiratory Rate 18 Blood Pressure 130/60 Pulse Oximetry 99 06/07/20 09:27 06/07/20 09:30 Temperature Pulse Rate 86 Respiratory Rate Blood Pressure Pulse Oximetry 95 Intake/Output Intake/Output: Intake & Output 06/04/20 06/05/20 06/06/20 06/07/20 23:59 23:59 23:59 23:59 Intake Total 800 2809 325 Output Total 2 Balance 800 2807 325 Meds/Results Medications: Active Medications Generic Name Dose Route Start Last Admin Trade Name Freq PRN Reason Stop Dose Admin Albuterol 1 puff 06/05/20 14:03 Albuterol Sulfate (*Sp) Aerosol 1 Puff INHALATION Q6H PRN Shortness Of Breath Aspirin 81 mg 06/06/20 09:00 06/07/20 09:27 Aspirin 81 Mg Enteric T
--- NOTE | 2020-06-07 14:51 | PM.DS ---
DS: Admitting Diagnosis Admitting Diagnosis Admitting Diagnosis: Acute Anemia,Upper GI Bleeding DS: Discharge Diagnosis Discharge Diagnosis (1) Acute low back pain: Code(s): M54.5 - Low back pain Status: Acute Assessment and Plan: Stable Tramadol 50 mg po q 6 hours prn. (2) Anemia due to blood loss: Code(s): D50.0 - Iron deficiency anemia secondary to blood loss (chronic) Status: Acute Assessment and Plan: Monitor in the outpatient setting. (3) Occult blood in stools: Code(s): R19.5 - Other fecal abnormalities Status: Acute Assessment and Plan: S/p EGD found to have dudenitis. (4) GI bleed: Code(s): K92.2 - Gastrointestinal hemorrhage, unspecified Status: Acute Assessment and Plan: Stable (5) Suicide ideation: Code(s): R45.851 - Suicidal ideations Status: Acute Assessment and Plan: Cleared by provider enrollment specialist to go home. (6) Chronic respiratory failure with hypoxia, on home oxygen therapy: Code(s): J96.11 - Chronic respiratory failure with hypoxia; Z99.81 - Dependence on supplemental oxygen Status: Chronic Assessment and Plan: Continue home O2 (7) Apical mural thrombus with acute PA: Code(s): I21.29 - ST elevation (STEMI) myocardial infarction involving other sites Status: Acute Assessment and Plan: OK to have DAPT with Plavix and ASA as per GI Holding Xarelto for now (8) Cardiomyopathy: Code(s): I42.9 - Cardiomyopathy, unspecified Status: Acute Assessment and Plan: Continue home meds Cardiology follow up in the outpatient setting. (9) Hypertension: Code(s): I10 - Essential (primary) hypertension Status: Chronic Assessment and Plan: Well controlled. (10) COPD (chronic obstructive pulmonary disease): Code(s): J44.9 - Chronic obstructive pulmonary disease, unspecified Status: Chronic Assessment and Plan: Stable Continue home meds DS: Summary Time Spent with Patient Time attestation: Total time spent providing and/or coordinating discharge services: Exam Narrative: Exam Narrative: Sitting in bed. Const: General: cooperative, comfortable, well developed, alert, awake and Physically active Nutritional Appearance: average body habitus Orientation/consciousness: patient oriented x3 Limitations: no limitations HENMT: Head: normal to inspection and normocephalic Ears: hearing grossly normal bilaterally General nose exam: Normal external nose present Face and sinus: normal facial exam Mouth: Yes Normal oral and palatal mucosa present Eyes: General: appearance normal, both eyes and all related structures Pupils: Equal, round and reactive pupils present EOM: EOMs intact bilaterally Neck: Neck: normal visual inspection, full ROM and no lymphadenopathy Resp: Effort & Inspection: normal respiratory effort Auscultation: clear to auscultation bilaterally Cardio: Rate: regular rate Rhythm: regular rhythm GI: Inspection: normal to inspection GI Palp: Yes Soft to palpation and Yes No hepatosplenomegaly present Skin: General skin exam: normal color Rashes: no rashes Neuro: General: patient oriented x3 Cranial nerves: Yes CN's II-XII intact bilaterally Cognition (Neuro): normal cognition Speech: normal speech Gait exam (Neuro): Normal gait present Motor exam (neuro): 5/5 motor strength present throughout Sensory Exam: normal sensation Extrem: General: normal to inspection, no joint enlargement and no pedal edema Psych: Appearance: grossly normal Mental Status: mental status grossly normal Speech and movement: Normal speech and movement present Affect: normal affect Attitude: cooperative Thought process: Normal thought process present Thought content: Yes Normal thought content present Insight: Good insight present (Psych) Judgement: Good judgement present (Psych) Discharge Plan Discharg
--- NOTE | 2020-06-07 15:55 | PC.NURSE ---
[facility] pharmacy called and given oral prescriptions over the phone for clopidigrel and protonix.
== END 2020-06-07 16:01 | disposition home or self-care (01) | DRG 377 ==
LOC: ANHED 07:37 → ANH2MED 11:44
PROVIDERS: Internal Medicine Gastroenterology; Nurse Practitioner; Admitting Provider Internal Medicine; Emergency Provider General Practice; PCP Internal Medicine; Visit Provider Internal Medicine
PROC: 0DJ08ZZ Inspection of Upper Intestinal Tract, Via Natural or Artificial Opening Endoscopic (ICD-10-PCS; CPT 43235; principal; 2020-06-06 09:30)
DX: K29.81 Duodenitis with bleeding (principal); Q39.4 Esophageal web; I21.29 ST elevation (STEMI) myocardial infarction involving other sites; J96.11 Chronic respiratory failure with hypoxia; R45.851 Suicidal ideations; D50.0 Iron deficiency anemia secondary to blood loss (chronic); K44.9 Diaphragmatic hernia without obstruction or gangrene; I25.5 Ischemic cardiomyopathy; I25.10 Atherosclerotic heart disease of native coronary artery without angina pectoris; I11.0 Hypertensive heart disease with heart failure; I50.9 Heart failure, unspecified; J44.9 Chronic obstructive pulmonary disease, unspecified; M54.40 Lumbago with sciatica, unspecified side; E78.5 Hyperlipidemia, unspecified; Z28.21 Immunization not carried out because of patient refusal; Z79.01 Long term (current) use of anticoagulants; Z99.81 Dependence on supplemental oxygen; Z95.5 Presence of coronary angioplasty implant and graft; Z87.891 Personal history of nicotine dependence; Z88.7 Allergy status to serum and vaccine
CPT/HCPCS: 36415; 36430; 72100; 74177; 80053; 81001; 82274; 83605; 84439; 84443; 84480; 85014; 85018; 85025; 85610; 85730; 86850; 86900; 86901; 86923; 87081; 96374; 96375; 99285; A9270; C9113; J0131; J2704; J7120; P9016; Q9967

== ENCOUNTER 2020-07-31 14:58 | Emergency (ER) | payer MEDICARE, SELFPAY ==
[2020-07-31] VITALS (19 sets, daily range): BP systolic 127–158; BP diastolic 65–85; PULSE 76–93; RESP 10–37; TEMP 36.3; O2SAT 95–96
--- NOTE | ~2020-07-31 | CT_ITS ---
EXAMINATION: CT chest abdomen pelvis w con DATE: 07/31/2020 17:45 INDICATION: Intermittent left-sided chest and abdominal pain TECHNIQUE: Computed tomography (CT) of the chest, abdomen, and pelvis was performed with 100 mL Omnip aque-350 intravenous contrast. The initial images demonstrate no contrast due to loss of IV access at the beginning of the initial attempted injection. Automated exposure control and iterative reconstru ction technique were employed. The dose-length product was 1563.15 mGy-cm. COMPARISON: 06/05/2020 FINDINGS: CHEST CT: Moderate emphysema with biapical pleural-parenchymal scarring. 1.9 x 1.3 cm spiculated mixed solid/núñez bsolid nodule in the central right upper lobe near the right hilum. 2.1 x 1.5 x 1.2 cm spiculated par amediastinal solid nodule in the anterior segment of the left upper lobe. 1.3 x 0.7 cm right lower lo be nodule with smooth margins along the dome of the diaphragm. Several additional scattered <8 mm nod ules throughout both lungs. Bronchiectatic changes most prominent in the right middle and bilateral l ower lobes. There is scattered mucous plugging in the right lower lobe. A few small linear densities within a region of atelectasis/scarring in the right middle lobe as well as in the dependent aspect o f the bilateral lower lobes suggestive of small amount of aspirated barium. No pulmonary edema, pleur al effusion or pneumothorax. Heart size is normal. Atherosclerotic coronary artery calcifications and likely stenting. No pericard ial effusion. 1.8 x 1.4 cm right hilar lymph node. A few normal-sized mediastinal lymph nodes. Large sliding-type hiatal hernia. Thoracic kyphosis with moderate spondylosis. There are bridging osteophyt es at multiple levels in the thoracic spine, consistent with diffuse idiopathic skeletal hyperostosis (DISH). ABDOMEN/PELVIS CT: Again seen is a small calcified gallstone at the neck of the otherwise normal-appearing gallbladder w ith no pericholecystic inflammatory change to suggest acute cholecystitis. Liver, spleen, pancreas, b ilateral adrenal glands are normal. Bilateral mild renal atrophy and multiple small subcentimeter jannet al cysts along with a larger 1.7 cm cyst at the upper pole of the right kidney. Mild scattered divert iculosis predominantly along the sigmoid colon and terminal ileum without adjacent inflammatory castro e to suggest diverticulitis. No bowel obstruction. Normal appendix. Mild prostatomegaly. Normal bladd er. There is calcified atherosclerosis of the aorta and many of the other arteries. Moderate 50-70% s tenosis at the proximal right common iliac artery. No free intraperitoneal gas or fluid. No pathologi evaristo enlarged abdominal or pelvic lymphadenopathy. Small fat-containing right inguinal hernia. Lumba r spondylosis with mild to moderate disc height loss and severe multilevel facet osteoarthritis. Seco ndary anterior and posterior spinal fusion from L3 through S1. Spiculated right supra-acetabular bone island. IMPRESSION: 1. Multiple pulmonary nodules, the most concerning for primary bronchogenic carcinoma is a 2.1 x 1.5 x 1.2 cm left upper lobe nodule for which CT guided percutaneous biopsy would be recommended assuming the patient is a biopsy candidate not requiring supplemental oxygen at baseline. 2. Moderate emphysema. 3. Moderate bronchiectasis with multiple mucous plugs and minimal amount of likely aspirated barium a t the bilateral lung bases. 4. 1.8 x 1.4 cm right hilar lymph node which could be reactive or metastatic. 5. Large sliding-type hiatal hernia. 6. Cholelithiasis. No acute intra-abdominal/pelvic process. 7. Small fat-containing right inguinal hernia. Reviewed, dictated and finalized at location A. D ATTENDANT
--- NOTE | ~2020-07-31 | XR_ITS ---
EXAMINATION: XR chest 2V DATE: 07/31/2020 17:51 INDICATION: Left-sided chest wall pain. TECHNIQUE: frontal and lateral views of the chest were obtained. COMPARISON: Chest CT dated 07/31/2020 FINDINGS: Mild streaky opacities in the bilateral lower lung zones corresponding to bronchiectatic changes with mucous plugging on the prior CT . The previously noted suspicious pulmonary nodule in the left upper lobe is difficult to differentiate from the hilum on the frontal projection but can be seen posterio r to the sternum on the lateral projection. Emphysema. No pleural effusion or pneumothorax. Heart siz e is normal. Large hiatal hernia. There are bridging osteophytes at multiple levels in the spine, con sistent with diffuse idiopathic skeletal hyperostosis (DISH). IMPRESSION: 1. 2 cm left upper lobe nodule best appreciated on the lateral projection is concerning for primary b ronchogenic carcinoma. See prior CT report for further detail and biopsy recommendations. 2. Bronchiectasis and mucous plugging in the bilateral lower lungs. 3. Large hiatal hernia. Reviewed, dictated and finalized at location A. O OPERATIONS AGENT IMPRESSION: 1. 2 cm left upper lobe nodule best appreciated on the lateral projection is co ncerning for primary bronchogenic carcinoma. See prior CT report for further de tail and biopsy recommendations. 2. Bronchiectasis and mucous plugging in the bilateral lower lungs. 3. Large hiatal hernia.
--- NOTE | 2020-07-31 15:06 | ECG_ITS ---
Measurements Intervals [place] Rate: 83 P: 55 VA: 147 QRS: 58 QRSD: 92 T: 67 QT: 366 QTc: 432 Interpretive Statements SINUS RHYTHM BASELINE WANDER- II, III, AVL, AVF NORMAL ECG Electronically Signed On 07-31-2020 16:15:09 BEHAVIORAL SCIENCES DEPARTMENT CHAIR by Gamal Dominguez D.O.
--- NOTE | 2020-07-31 15:52 | PC.NURSE ---
received order for ASA. patient was given ASA 81mg x 3 by EMS. takes ASA 81mg daily already. took am meds prior to transfer to this ED. on plavix since PCI.
--- NOTE | 2020-07-31 16:12 | PC.NURSE ---
Dr. Kennedy in room for exam.
--- NOTE | 2020-07-31 16:20 | ED.GENADULT ---
HPI - General Adult General Chief complaint: Chest Pain Stated complaint: HERNANDEZ, CP, & Abd pain Time Seen by Provider: 07/31/20 15:20 Source: patient Mode of arrival: EMS Limitations: no limitations History of Present Illness HPI narrative: 75 years old white male presents with intermittent pain left forehead, left chest and left abdomen over the last 4 days. Last episode was yesterday. Patient denies any aggravating or relieving factors. Patient status post one coronary stent placement 1 month ago. Currently on aspirin and Plavix., Currently patient is asymptomatic. Patient denies any fever, chills, nausea, vomiting, shortness of breath, or back pain. Patient also denying any focal neuro deficits. Related Data Home Medications Medication Instructions Recorded Confirmed ferrous sulfate 325 mg PO BID 05/17/20 06/05/20 albuterol sulfate 1 puff INHALATION Q6H PRN 06/05/20 06/05/20 Allergies Allergy/AdvReac Type Severity Reaction Status Date / Time Influenza Virus Vaccines Allergy Unknown Rash Verified 07/31/20 15:37 Review of Systems Review of Systems: Narrative: CONSTITUTIONAL: Denies fever, chills, or sweats. EYES: Denies visual changes, redness, or discharge. ENT: Denies rhinorrhea, congestion, sore throat, or otalgia. CARDIOVASCULAR: Denies chest pain, palpitations, or edema. RESPIRATORY: Denies cough or dyspnea. GASTROINTESTINAL: Denies abdominal pain, nausea, vomiting, or diarrhea. GENITOURINARY: Denies dysuria or hematuria. SKIN: Denies rash or itching. MUSCULOSKELETAL: Denies back pain, joint pain, or myalgia. NEUROLOGIC: Denies headache, numbness, or weakness. PSYCHIATRIC: Denies anxiety or depression. [facility] Past Medical History Medical History Chronic respiratory failure with hypoxia, on home oxygen therapy Congestive heart failure Possible LV thrombus of apex life vest was approved. EF grade 1 diastolic with EF 25-30% COPD (chronic obstructive pulmonary disease) Hyperlipidemia Hypertension S/P ORIF (open reduction internal fixation) fracture Right ankle Surgical History Surgical History H/O cardiac catheterization H/O heart artery stent H/O: vasectomy Family History Family History Sibling Accelerated phase chronic myeloid leukemia 1 brother Sibling Lung cancer To brothers Mother Emphysema lung Sibling Cerebrovascular accident Social History Social History Social History: The patient lives with his . She is a durable power workers compensation attorney for healthcare. He has 5 children. He desires to be a full code. He is retired from [employer]. He is a former smoker. He does not use any marijuana or illicit drugs. He said he did use marijuana when he was younger. No alcohol. Smoking packs per day: 1 Smoking cigarettes per day: 20.0 Smoking status: Former smoker Tobacco type: cigarettes Second hand tobacco smoke exposure: No Smoking end date: 07/21/14 Alcohol intake: former Substance use: former Additional living arrangements comments: lives with son and [id number] Gender identity (if verbalized by the patient): Male Spiritual care concerns: No Exam Narrative: Exam Narrative: General appearance: Well-developed, well-nourished Skin: Normal color Head: Normocephalic, nontraumatic Eyes: Clear conjunctiva ENT: Oropharynx normal, ears normal, nose normal Neck: Supple, nontender Chest and respiratory: Airway patent, no respiratory distress, no accessory muscle use Heart: Regular rate/rhythm Abdomen: Soft, nontender, no organomegaly, quiet bowel sounds Vascular: Normal peripheral pulses, normal capillary refill. Musculoskeletal: Normal range of motion, nontender back Neurologic: Alert and oriented ?3, SENIOR INSTRUCTIONAL DESIGNER is normal as tested, no gross motor deficit
--- NOTE | 2020-07-31 16:28 | PC.NURSE ---
patient attempted to use urinal. states he was unable to void. back in bed. O2 back on. denies needs at this time. offered different comfort measures or longer O2 tubing. on monitor. labs being drawn.
[2020-07-31 16:41] LABS: Basophils Absolute Auto 0.1 K/mm3 (0.0-0.1); Basophils Percent Auto 0.6 % (0.2-1.2); Eosinophils Absolute Auto 0.2 K/mm3 (0-0.3); Eosinophils Percent Auto 1.6 % (0-4.4); Hematocrit 39.1 % (42.0-52.0); Hemoglobin 12.2 g/dL (14.0-18.0); Immature Granulocyte Absolute 0.03 K/mm3 (0.00-0.031); Immature Granulocyte Percent A 0.3 % (0-0.5); Lymphocytes Absolute Auto 1.97 K/mm3 (0.9-3.2); Lymphocytes Percent Auto 19.8 % (18.3-44.2); Mean Corpuscular HGB Conc 31.2 g/dl (32-36); Mean Corpuscular Volume 96.3 fl (80-100); Mean Platelet Volume 10.4 fl (7.4-10.4); Monocytes Absolute Auto 0.8 K/mm3 (0.1-0.6); Monocytes Percent Auto 7.7 % (2.6-8.5); Platelet Count Result 393 k/mm3 (150-375); Red Blood Count 4.06 M/mm3 (4.6-6.20); Red Cell Distribution Width 13.5 % (11.5-14.5); White Blood Count 9.9 K/mm3 (4.5-10.0)
[2020-07-31 16:50] LABS: INR 0.9
[2020-07-31 16:51] LABS: Partial Thromboplastin Time 27.5 SECONDS (22.3-36.8)
[2020-07-31 16:57] LABS: Anion Gap 6 mmol/L (8-16); Blood Urea Nitrogen 15 mg/dL (9-20); Calcium 9.5 mg/dL (8.4-10.2); Carbon Dioxide 35 mmol/L (22-30); Chloride 99 mmol/L (98-107); Estimated CRCL calculation 83 ml/min; Estimated Glomerular Filt Rate > 60; Glucose 105 mg/dL (75-110); Potassium 4.4 mmol/L (3.4-5.0); Sodium 140 mmol/L (137-145)
--- NOTE | 2020-07-31 17:06 | PC.NURSE ---
patient going to CT.
[2020-07-31 17:09] LABS: Troponin I < 0.012 ng/mL (0.000-0.034)
--- NOTE | 2020-07-31 17:40 | PC.NURSE ---
patient back from CT. SL pulled out of left hand. SL placed in (L) AC. CT aware.
--- NOTE | 2020-07-31 17:53 | PC.NURSE ---
patient back from CT. test completed. back on monitor.
--- NOTE | 2020-07-31 18:08 | PC.NURSE ---
blanket given. lights off per patient's request. call light in reach. aware of expected wait time.
--- NOTE | 2020-07-31 18:25 | PC.NURSE ---
provider in room. all test results reviewed with patient. patient will be discharged. copy of CT results given to patient. patient is aware to FU with PCP.
--- NOTE | 2020-07-31 18:50 | PC.NURSE ---
monitors removed. SL removed. patient's family is coming to provide transportation home. patient to wait in room due to O2. ice water given. call light in reach.
--- NOTE | 2020-07-31 19:29 | PC.NURSE ---
patient's family here. patient in wheelchair with portable O2 tank from home. taken out to private vehicle.
[2020-07-31 20:28] LABS: Alanine Aminotransferase 17 U/L (4-50); Albumin Level 4.3 g/dL (3.5-5.1); Alkaline Phosphatase 104 U/L (38-126); Aspartate Amino Transferase 40 U/L (17-59); Bilirubin,Total 0.4 mg/dL (0.2-1.3); Lipase 119 U/L (23-300)
== END 2020-07-31 19:32 | disposition home or self-care (01) ==
PROVIDERS: Emergency Provider Emergency Medicine; PCP Internal Medicine
DX: R51.9 Headache, unspecified (principal); R07.9 Chest pain, unspecified; R10.12 Left upper quadrant pain; R91.8 Other nonspecific abnormal finding of lung field; I50.9 Heart failure, unspecified; J96.11 Chronic respiratory failure with hypoxia; Z99.81 Dependence on supplemental oxygen; E78.5 Hyperlipidemia, unspecified; I11.0 Hypertensive heart disease with heart failure; Z95.5 Presence of coronary angioplasty implant and graft; Z87.891 Personal history of nicotine dependence; Z79.82 Long term (current) use of aspirin; Z79.02 Long term (current) use of antithrombotics/antiplatelets; J43.9 Emphysema, unspecified; K44.9 Diaphragmatic hernia without obstruction or gangrene; K80.20 Calculus of gallbladder without cholecystitis without obstruction; K40.90 Unilateral inguinal hernia, without obstruction or gangrene, not specified as recurrent
CPT/HCPCS: 36415; 71046; 71260; 74177; 80048; 80076; 83690; 84484; 85025; 85610; 85730; 93005; 99284; Q9967

== ENCOUNTER 2020-08-12 14:32 | Outpatient (CLI) | payer MEDICARE, SELFPAY ==
--- NOTE | ~2020-08-12 | CT_ITS ---
EXAMINATION: CT brain wo con DATE: 08/12/2020 15:15 INDICATION: Left muscle weakness TECHNIQUE: Computed tomography (CT) of the head was performed without intravenous contrast. The mA wa s adjusted according to patient size. Iterative reconstruction technique was employed. Exam dose: 60 5.33 mGy-cm total exam DLP. COMPARISON: None FINDINGS: There is an approximately 1.4 cm hypoattenuating mass with some peripheral linear hyperdens ity consistent with calcification or hemorrhage, situated high over the right parietal convexity with prominent surrounding edema. Differential diagnosis includes primary or metastatic brain malignancy versus meningioma. MR brain imaging is recommended for further evaluation. Bilateral carotid siphon internal carotid artery calcifications. There is nonspecific diminished atte nuation of the cerebral white matter, likely due to chronic small vessel ischemic changes. No other intracranial mass lesion or hemorrhage is noted. No midline shift or mass effect is noted ot herwise. No subdural or epidural hematoma. There is moderate cerebral and cerebellar atrophy. No orbital mass lesion. The mastoid air cells and included paranasal sinuses are normally developed and aerated. No fracture or bone destruction of the cranial vault. IMPRESSION: 1.4 cm high right parietal mass with surrounding edema; MR imaging is recommended for fu rther evaluation Dr. Gunderson telephoned the results on 08/12/2020 at 1530 hours to nurse Tere. At her request, the report was faxed to [phone]. Reviewed, dictated and finalized at Location [facility]. Reviewed, dictated and finalized at location A. WORKER IMPRESSION: 1.4 cm high right parietal mass with surrounding edema; MR imaging is recommended for further evaluation Dr. Gunderson telephoned the results on 08/12/2020 at 1530 hours to nurse Carranza. At h er request, the report was faxed to [phone].
--- NOTE | ~2020-08-12 | US_ITS ---
EXAMINATION: US carotid duplex BI DATE: 08/12/2020 15:44 INDICATION: Left facial weakness and left upper extremity hemiparesis TECHNIQUE: Grayscale, color Doppler, and pulsed Doppler images of the cervical carotid arteries were obtained. The degree of vessel stenosis is placed in one of the following categories: normal, <50%, 5 0-69%, >=70% but less than near-occlusion, near-occlusion, or total occlusion. Note that percent sten osis relative to normal distal artery lumen diameter is indirectly measured from velocity measurement s as described by Jose Roberto, et al. Radiology 2003; [id number]:340-346. COMPARISON: None. FINDINGS: RIGHT: The right common carotid artery (CCA) peak systolic velocity (PSV) is 139 cm/s. The right internal ca rotid artery (ICA) PSV is 139 cm/s. The right ICA end-diastolic velocity (EDV) is 25 cm/s. The right ICA/CCA PSV ratio is 1.0. Grayscale and color Doppler images including secondary Doppler criteria yie ld an estimate of <50% diameter reduction from plaque in the ICA. The external carotid artery (ECA) P SV is 102 cm/s. There is antegrade flow in the right vertebral artery. LEFT: The left CCA PSV is 123 cm/s. The left ICA PSV is 113 cm/s. The left ICA EDV is 25 cm/s. The left ICA /CCA PSV ratio is 0.9. Grayscale and color Doppler images yield an estimate of <50% diameter reductio n from plaque in the ICA. The ECA PSV is 109 cm/s. There is antegrade flow in the left vertebral dalia ry. IMPRESSION: 1. <50% stenosis in the right internal carotid artery. 2. <50% stenosis in the left internal carotid artery. Reviewed, dictated and finalized at location B. CARRIER
== END 2020-08-12 14:33 | disposition home or self-care (01) ==
LOC: ANHIMG 14:38
PROVIDERS: PCP Internal Medicine; Visit Provider Nurse Practitioner Adult Health
DX: R29.898 Other symptoms and signs involving the musculoskeletal system (principal); G31.9 Degenerative disease of nervous system, unspecified; I65.23 Occlusion and stenosis of bilateral carotid arteries
CPT/HCPCS: 70450; 93880

== ENCOUNTER 2020-08-19 09:08 | Outpatient (CLI) | payer MEDICARE, SELFPAY ==
--- NOTE | ~2020-08-19 | MR_ITS ---
EXAMINATION: MR brain/brain stem wo/w con DATE: 08/19/2020 10:13 INDICATION: Brain mass. TECHNIQUE: Magnetic resonance imaging (MRI) of the brain and brainstem was performed without and with 18 mL MultiHance intravenous contrast. Sequences included sagittal and axial T1-weighted FSE, axial diffusion-weighted FS EPI, axial T2*-weighted GRE, axial T2-weighted FLAIR Propeller, and axial T2-we ighted Propeller. Postcontrast sequences included axial, sagittal, and coronal T1-weighted FSE. Appar ent diffusion coefficient (ADC) maps were created. COMPARISON: Head CT 07/31/2020 FINDINGS: There is a small old infarct in left cerebellum. There is a 1.9 cm enhancing mass in right parietal lobe with surrounding vasogenic edema. There is no acute ischemic infarct or intracranial he morrhage. The ventricles are normal in size. There is mild mucosal thickening in the ethmoid sinuses. The orbits are normal. The mastoid air cells are normal. IMPRESSION: 1. 1.9 cm mass in right parietal lobe, most likely metastatic lung cancer. 2. Small old infarct in left cerebellum. Reviewed, dictated and finalized at location A. STANT PLANT CONTROLLER
[2020-08-19 09:49] LABS: Estimated Glomerular Filt Rate > 60
== END 2020-08-19 09:09 ==
PROVIDERS: Visit Provider Internal Medicine
DX: G93.89 Other specified disorders of brain (principal); Z86.73 Personal history of transient ischemic attack (TIA), and cerebral infarction without residual deficits
CPT/HCPCS: 70553; A9577

== ENCOUNTER 2020-08-25 13:53 | Observation (INO) | payer MEDICARE, SELFPAY ==
[2020-08-25] VITALS (9 sets, daily range): BP systolic 130–173; BP diastolic 62–85; PULSE 75–82; RESP 13–23; TEMP 36.4–36.6; O2SAT 93–98; BMI 28.0
--- NOTE | ~2020-08-25 | CT_ITS ---
EXAMINATION: CT brain wo con DATE: 08/25/2020 15:08 INDICATION: Seizure. TECHNIQUE: Computed tomography (CT) of the head was performed without intravenous contrast. The mA wa s adjusted according to patient size. Iterative reconstruction technique was employed. The dose-lengt h product was 605.33 mGy-cm. COMPARISON: Head CT 08/12/2020, brain MRI 08/19/2020 FINDINGS: There is a 1.9 cm mass in right parietal lobe with surrounding vasogenic edema. There is a small old infarct in left cerebellum. There is no acute ischemic infarct or intracranial hemorrhage. The ventricles are normal in size. There is mild mucosal thickening in the ethmoid sinuses. The orbit s are normal. The mastoid air cells are normal. IMPRESSION: 1. Stable mass in right parietal lobe, most likely metastatic lung cancer. 2. Small old infarct in left cerebellum. Reviewed, dictated and finalized at location A. [facility] DEPARTMENT CHAIR
--- NOTE | 2020-08-25 14:41 | ECG_ITS ---
Measurements Intervals [place] Rate: 70 P: 45 CA: 166 QRS: 49 QRSD: 94 T: 74 QT: 378 QTc: 408 Interpretive Statements SINUS RHYTHM BASELINE WANDER- I, II, AVR, AVL ,AVF BORDERLINE ECG Electronically Signed On 08-26-2020 6:59:59 BARREL CUTTER by Gamal Dominguez D.O.
[2020-08-25 14:52] LABS: Basophils Percent Auto 0.5 % (0.2-1.2); Eosinophils Absolute Auto 0.3 K/mm3 (0-0.3); Eosinophils Percent Auto 4.8 % (0-4.4); Hematocrit 36.7 % (42.0-52.0); Hemoglobin 11.4 g/dL (14.0-18.0); Immature Granulocyte Absolute 0.02 K/mm3 (0.00-0.031); Immature Granulocyte Percent A 0.3 % (0-0.5); Lymphocytes Absolute Auto 1.37 K/mm3 (0.9-3.2); Mean Corpuscular HGB Conc 31.1 g/dl (32-36); Mean Corpuscular Hemoglobin 29.9 pg (26-34); Mean Corpuscular Volume 96.3 fl (80-100); Mean Platelet Volume 10.8 fl (7.4-10.4); Monocytes Absolute Auto 0.5 K/mm3 (0.1-0.6); Monocytes Percent Auto 7.7 % (2.6-8.5); Neutrophils Absolute Auto 4.3 K/mm3 (1.3-6.7); Neutrophils Percent Auto 65.7 % (45.5-73.1); Platelet Count Result 295 k/mm3 (150-375); Red Blood Count 3.81 M/mm3 (4.6-6.20); Red Cell Distribution Width 13.6 % (11.5-14.5); White Blood Count 6.5 K/mm3 (4.5-10.0)
[2020-08-25 15:03] LABS: INR 0.9
[2020-08-25 15:04] LABS: Partial Thromboplastin Time 28.4 SECONDS (22.3-36.8)
[2020-08-25 15:07] LABS: Alanine Aminotransferase 17 U/L (4-50); Albumin Level 4.1 g/dL (3.5-5.1); Alkaline Phosphatase 91 U/L (38-126); Anion Gap 4 mmol/L (8-16); Aspartate Amino Transferase 28 U/L (17-59); Bilirubin,Total 0.3 mg/dL (0.2-1.3); Blood Urea Nitrogen 16 mg/dL (9-20); Calcium 8.9 mg/dL (8.4-10.2); Carbon Dioxide 35 mmol/L (22-30); Chloride 103 mmol/L (98-107); Estimated CRCL calculation 57 ml/min; Estimated Glomerular Filt Rate > 60; Glucose 100 mg/dL (75-110); Potassium 4.3 mmol/L (3.4-5.0); Sodium 142 mmol/L (137-145)
[2020-08-25] MEDS: levETIRAcetam 1000MG/NACL100ML 1,000 MG/100 ML BAG 400 MG IVPB (15:30)
--- NOTE | 2020-08-25 15:31 | ED.SEIZURE ---
HPI - Seizure General Chief Complaint: Seizure Stated Complaint: seizure Time Seen by Provider: 08/25/20 14:07 Source: patient Mode of arrival: EMS Limitations: no limitations History of Present Illness HPI Narrative: This patient is a 75 year old male with history of hypertension and brain mass who presents for evaluation of seizure. Patient reports he has intermittent episodes for 2 months in which he develop left side weakness. These episodes spontaneous resolve. He had a brain MRI and CT chest/abdomen/pelvis a few weeks ago. This shows a lung mass with mets that is likely primary bronchogenic carcinoma. His brain MRI shows a right parient mass. He has an appointment pending with DR. Urena for evaluation and treatment. Today his daughter witness patient having a seizure. She heard him screaming so she went to check on him. She found him having a general tonic clonic seizure.This lasted a couple minutes. She reports he had left side weakness after the seizure. His weakness has resolved and he is back to baseline. He denies history of seizure. She denies chest pain, sob, abdominal pain, nausea, vomiting or fever. Related Data Home Medications Medication Instructions Recorded Confirmed ferrous sulfate 325 mg PO BID 05/17/20 06/05/20 acetaminophen-codeine tablet 08/25/20 escitalopram oxalate mg 08/25/20 pregabalin 08/25/20 umeclidinium-vilanterol [Anoro INHALATION 08/25/20 Ellipta] Allergies Allergy/AdvReac Type Severity Reaction Status Date / Time Influenza Virus Vaccines Allergy Unknown Rash Verified 07/31/20 15:37 Review of Systems Review of Systems: All systems reviewed & are unremarkable except as noted in HPI and below PMFSH Past Medical History Medical History Chronic respiratory failure with hypoxia, on home oxygen therapy Congestive heart failure Possible LV thrombus of apex life vest was approved. EF grade 1 diastolic with EF 25-30% COPD (chronic obstructive pulmonary disease) Hyperlipidemia Hypertension S/P ORIF (open reduction internal fixation) fracture Right ankle Surgical History Surgical History H/O cardiac catheterization H/O heart artery stent H/O: vasectomy Family History Family History Sibling Accelerated phase chronic myeloid leukemia 1 brother Sibling Lung cancer To brothers Mother Emphysema lung Sibling Cerebrovascular accident Social History Social History Social History: The patient lives with his . She is a durable power [employer] attorney for healthcare. He has 5 children. He desires to be a full code. He is retired from [employer]. He is a former smoker. He does not use any marijuana or illicit drugs. He said he did use marijuana when he was younger. No alcohol. Smoking packs per day: 1 Smoking cigarettes per day: 20.0 Smoking status: Former smoker Tobacco type: cigarettes Second hand tobacco smoke exposure: No Smoking end date: 07/21/14 Alcohol intake: former Substance use: former Additional living arrangements comments: lives with son and [id number] Gender identity (if verbalized by the patient): Male Spiritual care concerns: No Exam Const: General: no acute distress and alert Orientation/consciousness: patient oriented x3 HENMT: Head: normocephalic and atraumatic Face and sinus: face symmetric Mouth: Yes Normal oral and palatal mucosa present, Yes lip normal, Yes oropharynx normal and Yes moist mucous membranes Eyes: Pupils: Equal, round and reactive pupils present EOM: EOMs intact bilaterally Resp: Effort & Inspection: normal respiratory effort and no retractions Auscultation: clear to auscultation bilaterally Cardio: Rate: regular rate Rhythm: regular rhythm Heart sounds: no
[2020-08-25] MEDS: DEXAMETHASONE SOD PHOS INJ 4 MG/ML VIAL 10 MG IV PUSH (16:07)
[2020-08-25 17:32] LABS: Add Urine Microscopic? NO; Appearance Urine Clear (Clear); Bilirubin Urine Negative (Negative); Blood Urine Negative (Negative); Color Urine Straw (Yellow); Glucose Urine UA Negative (Negative); Ketones Urine Negative (Negative); Leukocyte Esterase Ur Negative LEU/UL (Negative); Nitrate Urine Negative (Negative); Protein Urine Negative (Negative); Specific Grav Ur 1.014 (1.001-1.035); Urobilinogen Urine Negative mg/dL (<2.0)
--- NOTE | 2020-08-25 18:25 | ADMGEN ---
This patient, Pb Gunderson, was admitted to Medical Room 342-01. Patient/family oriented to hospital policies and general routines including ID bracelet, bed and alarms, visiting hours, pain management, procedures, bathroom and other care routines, personal items, smoking policy, room service/diet, and visiting hours. Information on how to activate the Rapid Response Team has been discussed. Patient/Family are encouraged to report perceived risks to care and to ask questions if they do not understand what they are told or what they should do.
[2020-08-25] MEDS: DEXAMETHASONE SOD PHOS INJ 4 MG/ML VIAL IV PUSH (23:10)
[2020-08-26] VITALS (8 sets, daily range): BP systolic 130–144; BP diastolic 61–68; PULSE 64–92; RESP 18; TEMP 36.3–36.7; O2SAT 92–98
[2020-08-26] MEDS: ACETAMINOPHEN/CODEINE (*CRX) 300/30 MG TABLET 1 TAB BY MOUTH ×4 (01:02→17:25)
--- NOTE | 2020-08-26 03:50 | HP_ITS ---
DATE OF SERVICE: 08/25/2020 TIME OF EVALUATION: 1830 hours. CHIEF COMPLAINT: Seizure. HISTORY OF PRESENT ILLNESS: This is a pleasant 75-year-old male, former smoker with coronary artery disease, ischemic heart disease with low ejection fraction, hypertension, hyperlipidemia, COPD and chronic respiratory failure on home oxygen, with recent imaging showing findings of suspected primary bronchogenic carcinoma, who presented to the emergency department earlier today from home after having a seizure. Over the past couple of months, he has had intermittent left-sided weakness and some chest discomfort prompting a CT of the chest, abdomen, and pelvis, which was done on 07/31/2020. Multiple pulmonary nodules were noted concerning for primary bronchogenic carcinoma. A brain CT done about a week thereafter showed a 1.4 cm high right parietal mass with surrounding edema with subsequent MRI showing 1.9 cm mass in the same area, most likely metastatic lung cancer. He has established care with Dr. Urena although he has not yet had a biopsy or official diagnosis, but it is my understanding that is scheduled for that sometime soon. He tells me he had a seizure couple weeks ago, however, he has not been on any medication for that. Today, not long prior to arrival, family members heard him making strange noise and when they walked into the room, he was having an active generalized tonic-clonic seizure, which lasted a couple of minutes. The is no mention of postictal state, tongue bite, or bladder/bowel incontinence. After the seizure, he had some left-sided weakness again, however, that has since improved. Brain CT today once again demonstrated the parietal mass with surrounding vasogenic edema, no midline shift. He is being admitted in this setting as Dr. Urena does not feel he needs neurosurgery evaluation at this time. Currently, the patient has no significant complaints and denies headache, auditory and visual changes, current focal weakness, paresthesias, fever, cold and flu symptoms, chest pain, shortness of breath, nausea, and vomiting. MEDICAL HISTORY: 1. Coronary artery disease with history of stents. 2. Ischemic cardiomyopathy with ejection fraction as low as 10-15% for which he was on a LifeVest. With improved ejection fraction to 25-30% on echocardiogram in May 2020. 3. Suspected left ventricular apical thrombus, previously treated with anticoagulation, however, he did have a GI bleed in May 2020, for which that was held for a period of time. 4. Hypertension. 5. Hyperlipidemia. 6. Chronic obstructive pulmonary disease. 7. Chronic respiratory failure, on home oxygen. 8. History of colon polyps. 9. Hemorrhoids. 10. Chronic anemia. 11. Old stroke on recent brain MRI. 12. Pulmonary masses consistent with probable primary bronchogenic carcinoma, however, tissue samples have not yet been obtained. Recent brain MRI showed a parietal mass with surrounding vasogenic edema, likely metastatic lung cancer. 13. Eczema. 14. Psoriasis. 15. Anxiety. 16. Iron deficiency anemia. SURGICAL HISTORY: 1. Cardiac catheterization with stent. 2. Vasectomy. 3. Right ankle surgery. 4. Right hand surgery. HOME MEDICATIONS: 1. Tylenol with codeine 300 mg q.6 hours as needed for pain. 2. Escitalopram 10 mg daily. 3. Ferrous sulfate 325 mg twice daily. 4. Losartan 25 mg daily. 5. Metoprolol succinate 25 mg daily. 6. Pregabalin 100 mg 3 times daily. 7. Anora Ellipta inhaled daily. 8. Aspirin 81 mg daily. 9. Clopidogrel 75 mg daily. 10. Spironolactone 25 mg daily. ALLERGIES: INFLUENZA VIRUS VACCINE. SOCIAL HISTORY: The patient is and lives with his in [place]. They have 5 children. He is retired. He smoked a pack of cigarettes per day for many years
[2020-08-26] MEDS: DEXAMETHASONE SOD PHOS INJ 4 MG/ML VIAL IV PUSH ×3 (06:04→17:25)
[2020-08-26 06:08] LABS: Hematocrit 32.6 % (42.0-52.0); Hemoglobin 10.2 g/dL (14.0-18.0); Mean Corpuscular HGB Conc 31.3 g/dl (32-36); Mean Corpuscular Hemoglobin 29.6 pg (26-34); Mean Corpuscular Volume 94.5 fl (80-100); Mean Platelet Volume 10.6 fl (7.4-10.4); Platelet Count Result 302 k/mm3 (150-375); Red Blood Count 3.45 M/mm3 (4.6-6.20); White Blood Count 6.3 K/mm3 (4.5-10.0)
[2020-08-26 06:12] LABS: Anion Gap 3 mmol/L (8-16); Blood Urea Nitrogen 16 mg/dL (9-20); Calcium 8.5 mg/dL (8.4-10.2); Carbon Dioxide 35 mmol/L (22-30); Chloride 103 mmol/L (98-107); Estimated CRCL calculation 68 ml/min; Estimated Glomerular Filt Rate > 60; Glucose 142 mg/dL (75-110); Potassium 5.1 mmol/L (3.4-5.0); Sodium 141 mmol/L (137-145)
[2020-08-26] MEDS: ASPIRIN 81 MG ENTERIC TABLET PO (08:58)
[2020-08-26] MEDS: FERROUS SULFATE 324 MG TABLET PO ×2 (08:58→17:25)
[2020-08-26] MEDS: CLOPIDOGREL BISULFATE 75 MG TABLET PO (08:58)
[2020-08-26] MEDS: ESCITALOPRAM OXALATE 5 MG TABLET 10 MG BY MOUTH (08:58)
[2020-08-26] MEDS: levETIRAcetam 500 MG TABLET PO (08:59)
[2020-08-26] MEDS: PREGABALIN (*CRX) 50 MG CAPSULE 100 MG PO ×3 (08:59→17:25)
[2020-08-26] MEDS: SPIRONOLACTONE 25 MG TABLET PO (08:59)
[2020-08-26] MEDS: LOSARTAN POTASSIUM 25 MG TABLET PO (08:59)
[2020-08-26] MEDS: METOPROLOL SUCCINATE EXT REL 25 MG TABCR PO (09:00)
--- NOTE | 2020-08-26 10:57 | PM.IMPN ---
Progress Note: A&P Assessment and Plan (1) New onset seizure: Code(s): R56.9 - Unspecified convulsions Status: Acute Assessment and Plan: Patient reports having smaller seizures over the course of several weeks, presents after what sounds to be a generalized tonic-clonic seizure 08/25. Suspect this may be related to the 1.9cm right parietal mass with surrounding vasogenic edema that is suspected to be metastatic lung cancer. CT brain 08/25 showed stable mass compared to CT 07/31/20. Dr Urena has started him on IV decadron as well as Keppra. Discussed case with Dr Urena this morning. He recommends we place a consult to Dr Sethi, radiation oncology, so he could be arranged for outpatient radiation soon. He plans to order a US-guided biopsy of left upper lung nodule so a diagnosis and further treatment plan can be established. He recommends a tapered ongoing course of decadron for weeks and is OK with continuing with IV decadron for now. (2) Mass of brain: Code(s): G93.89 - Other specified disorders of brain Status: Chronic Assessment and Plan: 1.9cm mass in right parietal lobe diagnosed on CT 08/12/20, confirmed with MRI brain 08/19/20. Along with findings on CT chest 07/31/20 concerning for primary bronchogenic carcinoma, this may be evidence of metastasis. No biopsies have been performed thus far. He describes he was scheduled to meet and establish care with Dr Urena soon. Appreciate Dr Urena's input here. (3) Cardiomyopathy: Code(s): I42.9 - Cardiomyopathy, unspecified Status: Chronic Assessment and Plan: Patient has known ischemic cardiomyopathy, latest EF 25-30% (05/18/20) improved from 10-15% previously, with STEMI s/p PCI and coronary stenting to LAD 05/17/20. He needs to remain on his dual antiplatelet therapy with aspirin and Plavix. Wore a life vest for a period of time after that discharge. Stable, no chest pain. Continue metoprolol and losartan. (4) Hypertension: Code(s): I10 - Essential (primary) hypertension Status: Chronic Assessment and Plan: Stable, last 144/61 maintained on his home metoprolol, losartan, spironolactone. Monitor BP and adjust treatment as needed. (5) COPD (chronic obstructive pulmonary disease): Code(s): J44.9 - Chronic obstructive pulmonary disease, unspecified Status: Chronic Assessment and Plan: Respiratory status is stable. With chronic respiratory failure requiring 3L/min O2 at all times. No evidence of respiratory distress. He can continue his inhaler if it can be brought from home, nonformulary. Add albuterol PRN. (6) Metastatic cancer: Code(s): C79.9 - Secondary malignant neoplasm of unspecified site Status: Acute Assessment and Plan: See above. Appreciate oncology recommendations. (7) Anemia: Code(s): D64.9 - Anemia, unspecified Status: Chronic Assessment and Plan: Chronic iron deficiency anemia, Hgb more stable than his previous admission where he required blood transfusion. No signs or symptoms of acute bleeding at this time. Monitor CBC and consider transfusion if Hgb < 7. Subjective Date/time seen: 08/26/20 10:15 Interval history: Mr. Gunderson is a very pleasant 75yo M admitted after a seizure. He reports he had his first big seizure that lasted a few minutes around 2 weeks ago. He then had another generalized tonic-clonic seizure yesterday witnessed by his [id number] for around 5 minutes. He tells me he has had around six other smaller seizures where he stays in his chair with some shaking without falling over, over the last couple months . He has ROSIBEL upper a
--- NOTE | 2020-08-26 12:07 | WPDNEURCNPN ---
Assessment and Plan Assessment and plan (1) Mass of brain: Code(s): G93.89 - Other specified disorders of brain Status: Chronic (2) New onset seizure: Code(s): R56.9 - Unspecified convulsions Status: Acute (3) Apical mural thrombus with acute SD: Code(s): I21.29 - ST elevation (STEMI) myocardial infarction involving other sites Status: Acute (4) Hypertension: Code(s): I10 - Essential (primary) hypertension Status: Chronic Additional Plan seizures with underlying metastatic disease patient is already receiving liver transit time considered need his solitary lesion oncologist can be consulted to consider only the chemotherapy, radiation or craniotomy again he is a known case of malignancy probably he will be treated with the chemo and radiation Consult date: 08/26/20 Time Seen: 11:30 HPI: Pb Gunderson is a 75 year old male admitted to the hospital for the complaints of seizure about couple of weeks ago though he has not been taking any anticonvulsants and just prior to the arrival this particular time patient was making strange noises he was noted to have generalized tonic clonic activity which lasted about couple of months and after the seizure he was noted to have left-sided weakness initial CT scan documented the mass with surrounding vasogenic edema with no midline shift by the time he was seen by the hospitalist he was awake alert and following verbal commands appropriately patient does have ongoing history of 1. Former smoker 2. Coronary artery disease 3. Hypertension 4. Hyperlipidemia 5. COPD with chronic respiratory failure on home oxygen and documented bronchogenic carcinoma, 6. History of scheme a cardiomyopathy with reduced ejection fraction on echocardiogram and left ventricular apical thrombus treated with anticoagulation therapy was subsequently stopped because of the GI bleed in May of 2020 6. History of eczema psoriasis. evaluation documented mass in the right parietal lobe most likely metastatic carcinoma of the lung with small old infarct in left cerebellum, and MRI confirming the 1.9cm mass in the right parietal lobe most likely metastatic carcinoma of the lung with small old infarct in left cerebellum, routine blood studies with no leukocytosis hemoglobin 10.2 platelet count of 302, basic metabolic panel potassium 5.1 sodium normal BUN 16 creatinine 0.90 glucose 142 and UA negative. patient already receiving dexamethasone 4 mg IV push q.6 hours along with aspirin 81 mg daily Plavix 75 mg daily he cited a prime 10 mg daily losartan 25 mg daily metoprolol 25 mg daily Burger 100 t.i.d and liver transit time 500 q.12 hours has been started Review of Systems Review of Systems: All systems reviewed & are unremarkable except as noted in HPI and below PMFSH Past Medical History Medical History Chronic respiratory failure with hypoxia, on home oxygen therapy Congestive heart failure Possible LV thrombus of apex life vest was approved. EF grade 1 diastolic with EF 25-30% COPD (chronic obstructive pulmonary disease) Hyperlipidemia Hypertension S/P ORIF (open reduction internal fixation) fracture Right ankle Surgical History Surgical History H/O cardiac catheterization H/O heart artery stent H/O: vasectomy Family History Family History Sibling Accelerated phase chronic myeloid leukemia 1 brother Sibling Lung cancer To brothers Mother Emphysema lung Sibling Cerebrovascular accident Social History Social History Social History: The patient lives with his . She is a durable power commercial attorney for healthcare. He has 5 children. He desires to be a full code. He is retired from [employer]. He is a former smoker. He does not use any marijuana or illicit drugs
--- NOTE | 2020-08-26 12:35 | PDONCCN ---
HPI - Date of Consult Date/Time: 08/26/20 12:35 Requesting Physician: CLARA Ward Primary Care Provider: Jennifer LopezMD - Consult Narrative Reason for consult: Metastatic lung cancer Narrative: Pb Gunderson is a 75 year old male with history of COPD and smoking quit about 7 years ago. Patient is on 3 L of oxygen all the time for last 6-7 years duration. He also have a history of hypertension hyperlipidemia and low ejection fraction. He has been having seizures off and on since May of 2020. He came into the hospital with another episode of seizure just yesterday. He has been getting short of breath and complain of generalized weakness. CT scan of chest abdomen and pelvis done on July 31 showed multiple pulmonary nodules concerning for primary bronchogenic carcinoma. CT brain showed 1.4 cm right parietal lobe mass with surrounding edema. MRI showed 1.9 cm mass in the same area. Patient had appointment to see me next week but ended up in the hospital with another episode of seizure. He denies any chest pain. Denies any bone pain. No weight loss. No other new complaints. Review of Systems - Review of Systems All systems reviewed & are unremarkable except as noted in HPI and [facility] Medical History: Medical History (Last Reviewed 08/26/20 @ 12:13 by Truong Vasquez MD) Chronic respiratory failure with hypoxia, on home oxygen therapy Congestive heart failure Possible LV thrombus of apex life vest was approved. EF grade 1 diastolic with EF 25-30% COPD (chronic obstructive pulmonary disease) Hyperlipidemia Hypertension S/P ORIF (open reduction internal fixation) fracture Right ankle Surgical History: Surgical History (Last Reviewed 08/26/20 @ 12:13 by Trunog Vasquez MD) H/O cardiac catheterization H/O heart artery stent H/O: vasectomy Family History: Family History (Last Reviewed 08/26/20 @ 12:13 by Truong Vasquez MD) Sibling Accelerated phase chronic myeloid leukemia 1 brother Sibling Lung cancer To brothers Mother Emphysema lung Sibling Cerebrovascular accident - Social History Social History: Social History (Last Reviewed 08/26/20 @ 12:13 by Truong Vasquez MD) Gender Identity: Gender identity (if verbalized by the patient): Male Alcohol Use: Alcohol intake: never Substance Use: Substance use: never Others: Spiritual care concerns: No Smoking Status: Smoking status: Current every day smoker Tobacco type: cigarettes Second hand tobacco smoke exposure: No Smoking end date: 07/21/14 Approximate Smoking End Date: 2014 Smoking Pack-years: Smoking packs per day: 2 Smoking cigarettes per day: 40.0 Years smoked: 50 Smoking pack-years: 100.00 Meds Home Medications Medication Instructions Recorded Confirmed Type ferrous sulfate 325 mg PO BID 05/17/20 08/25/20 History spironolactone 25 mg PO QAM #30 tablet 05/20/20 08/25/20 Rx aspirin 81 mg PO QAM #0 tablet 06/07/20 08/25/20 Rx clopidogrel 75 mg PO QAM #0 tablet 06/07/20 08/25/20 Rx acetaminophen-codeine 1 tablet Q6H 08/25/20 08/25/20 History escitalopram oxalate 10 mg DAILY 08/25/20 08/25/20 History losartan 25 mg PO DAILY 08/25/20 08/25/20 History metoprolol succinate 25 mg PO DAILY 08/25/20 08/25/20 History pregabalin 100 mg PO TID 08/25/20 08/25/20 History umeclidinium-vilanterol [Anoro 62.5 inh INHALATION DAILY 08/25/20 08/25/20 History Ellipta] Allergies Allergy/AdvReac Type Severity Reaction Status Date / Time Influenza Virus Vaccines Allergy Unknown Rash Verified 08/25/20 18:36 Results - Labs CBC & Chem 7: 08/26/20 05:38 08/26/20 05:39 Labs: Short CBC 08/25/20 08/26/20 Range/Units 14:45 05:38 WBC 6.5 6.3 (4.5-10.0) K/mm3 Hgb 11.4 L 10.2 L (14.0-18.0) g/dL Hct 36.7 L 32.6 L (42.0-52.0) % Plt Count 295 302 (150-375) k/mm3 [facility] 08/25/20 08/26/20 14:45 05:39 [place]
--- NOTE | 2020-08-26 13:08 | PDRADONCCN ---
Recommendations I had a lengthy and detailed discussion with Mr. Gunderson regarding ongoing workup for probable metastatic lung cancer. He is reportedly not a good candidate for lung biopsy due to his COPD and full-time oxygen requirement. Given that he has just a single brain metastasis, I recommend an evaluation by a neurosurgeon at [facility] in [place]. Tissue diagnosis will be important for his ongoing oncologic care. If he is not a candidate for craniotomy, stereotactic radiosurgery (SRS) is an alternative option for definitive therapy. SRS may be recommended in the postoperative setting as well. I would be reluctant to treat with whole brain radiotherapy unless multiple brain metastases are discovered. Bronchoscopic biopsy may be an alternate method for tissue diagnosis. I agree with his present management with Keravi and Decadron in the meantime. I have discussed my recommendations with the patient, his [id number] (Britt) and with Dr. Urena. A total time of about 60 minutes was spent counseling the patient and coordinating care, with more than half the time discussing treatment options and potential risks and benefits. Impression 75 y.o. male with probable stage IV lung cancer admitted with seizures and left-sided weakness due to a probable single right parietal brain metastasis. [facility] - Date/Time Seen 08/26/20 13:09 - Identifying Data Pb Gunderson is a 75 y.o. male with probable stage IV lung cancer admitted after seizure and left-sided weakness due to a probable single right parietal brain metastasis. He is seen in consultation today at the request of Dr. Kingsley Urena for an inpatient consultation. - History of Present Illness Mr. Gunderson initially presented with seizures and left upper extremity weakness over the last few months. CT scan of the brain showed a 1.4 cm right parietal lobe mass with surrounding edema. CT scan of the chest, abdomen and pelvis on 07/31/2020 showed multiple pulmonary nodules with the most concerning for primary bronchogenic carcinoma measuring 2.1 cm in the left upper lobe. MRI of the brain on 08/19/2020 revealed a 1.9 cm mass in right parietal lobe, most likely metastatic lung cancer. He was started on Keppra and steroids upon admission to the hospital yesterday after a generalized tonic-clonic seizure witnessed by his [id number]. He reports that his left arm weakness is slowly improving. Of note, Mr. Gunderson has a history of COPD and requires oxygen by nasal cannula 3L full-time. He denies any pain and reports only occasional mild headaches without nausea. His shortness of breath is unchanged and he denies worsening cough, sputum production and hemoptysis. - Medical History Medical History (Last Reviewed 08/26/20 @ 12:13 by Truong Vasquez MD) Chronic respiratory failure with hypoxia, on home oxygen therapy Congestive heart failure Possible LV thrombus of apex life vest was approved. EF grade 1 diastolic with EF 25-30% COPD (chronic obstructive pulmonary disease) Hyperlipidemia Hypertension S/P ORIF (open reduction internal fixation) fracture Right ankle - Surgical History Surgical History (Last Reviewed 08/26/20 @ 12:13 by Truong Vasquez MD) H/O cardiac catheterization H/O heart artery stent H/O: vasectomy - Family History Family History (Last Reviewed 08/26/20 @ 12:13 by Truong Vasquez MD) Sibling Accelerated phase chronic myeloid leukemia 1 brother Sibling Lung cancer To brothers Mother Emphysema lung Sibling Cerebrovascular accident - Social History Social History (Last Reviewed 08/26/20 @ 12:13 by Truong Vasquez MD) Gender Identity: Gender identity (if verbalized by the patient): Male Alcohol Use: Alcohol intake: never Substance Use: Substance use: never Others: Spiritual care concerns: No Smoking Status: Smoking status: Current every day smoker Tobacco type: cigarettes Second hand tobacco smoke exposur
--- NOTE | 2020-08-26 16:48 | PM.TDS ---
Transfer Discharge Sum: Prov Provider Date of admission: 08/25/20 17:40 Primary care physician: Jennifer Lopez, Admitting clinician: Mayi Bernstein MD Consults: 08/25/20 16:24 Consult to Physician Routine Comment: Consulting Provider: Kingsley Urena Reason for consultation: metastatic brain mass Has provider been notified: Yes 08/26/20 08:00 Consult to Physician Routine Comment: Spoke with Dr. Vasquez @ 0812 Consulting Provider: Truong Vasquez weight caller/MD group to consult: Neurology Reason for consultation: Seizure related to brain mass Has provider been notified: Yes 08/26/20 11:34 Consult to Physician Routine Comment: Consulting Provider: Jailene Sethi weight caller/MD group to consult: Dr Sethi- Radiation Oncology by recommendation of Dr Urena Reason for consultation: Brain mass, suspected metastasis possibly from primary lung CA Has provider been notified: No DS: Admitting Diagnosis Admitting Diagnosis Admitting Diagnosis: Seizure DS: Discharge Diagnosis Discharge Diagnosis (1) New onset seizure: Code(s): R56.9 - Unspecified convulsions Status: Acute Assessment and Plan: Date of Admission 08/25/20 Date of Transfer/DOS 08/26/20 Mr. Gunderson is a very pleasant 75yo M with coronary artery disease, ischemic heart disease with low ejection fraction, hypertension, hyperlipidemia, COPD and chronic respiratory failure on home oxygen, with recent imaging showing findings of suspected primary bronchogenic carcinoma, presented to the ED 08/25/20 from home after having a seizure. Recent MRI brain from 08/19/2020 demonstrated a 1.9 cm mass in the right parietal lobe with surrounding vasogenic edema without mass effect or midline shift. Is concerning for metastatic disease and is suspected to be the etiology of his seizure. He had not yet established care with oncology regarding his recent imaging findings, no biopsies had been obtained yet. He was scheduled to establish care with Oncology, Dr. Urena, in the upcoming week and he was evaluated by Dr. Urena here in hospital. He was also evaluated by Dr. Sethi, radiation oncology. Both specialists agreed that the patient would benefit from transfer to tertiary care for neurosurgery consultation. He was started on IV Decadron as well as oral Keppra and did not have any further seizure activity while admitted. His respiratory status was stable and he was maintaining adequate oxygen saturations on his home requirement of 3 L/minute nasal cannula. I spoke with Deb Leo, SPLUNK ARCHITECT, who accepted the patient in transfer to [facility] for further management. He was hemodynamically stable for transfer on 06/25/2021 Latest vital signs prior to transfer are as follows: Last Vital Signs Temp 98.0 F 08/26/20 14:00 Pulse 80 08/26/20 16:00 Resp 18 08/26/20 14:00 BP 130/68 08/26/20 14:00 Pulse Ox 98 08/26/20 14:00 Patient reports having smaller seizures over the course of several weeks, presents after what sounds to be a generalized tonic-clonic seizure 08/25. Suspect this may be related to the 1.9cm right parietal mass with surrounding vasogenic edema that is suspected to be metastatic lung cancer. CT brain 08/25 showed stable mass compared to CT 07/31/20. Dr Urena has started him on IV decadron as well as Keppra. Discussed case with Dr Urena this morning. He recommends we place a consult to Dr Sethi, radiation oncology, so he could be arranged for outpatient radiation soon. Also seen by Dr. Sethi, radiation oncology, who recommends transfer to [facility] for neurosurgery evaluation. (2) Mass of brain: Code(s): G93.89 - Other specified disorders of brain Status: Chronic Assessment and Plan: 1.9cm mass in right parietal lobe diagnosed on CT 08/12/20, confirmed with MRI brain 08/19/20. Along with findings on CT chest 07/31/20 concerning for primary b
--- NOTE | 2020-08-26 17:00 | PC.NURSE ---
Pt transferred by ambulance to [facility]. Report given to Magali.
--- NOTE | 2020-08-26 17:26 | PC.NURSE ---
Spoke with Niece Britt. Family aware of patient being transferred to [facility]. Patient in agreement as well.
--- NOTE | 2020-08-26 17:27 | PC.NURSE ---
Report given to Magali at [facility]. Patient being sent with 20g Left forearm.
== END 2020-08-26 17:40 | disposition short-term general hospital (02) ==
LOC: ANHED 17:33 → ANH3MED 17:49
PROVIDERS: Physician Assistant; Admitting Provider Family Medicine; Emergency Provider General Practice; PCP Internal Medicine; Visit Provider Family Medicine
DX: R56.9 Unspecified convulsions (principal); G93.89 Other specified disorders of brain; G81.94 Hemiplegia, unspecified affecting left nondominant side; R91.8 Other nonspecific abnormal finding of lung field; G93.6 Cerebral edema; I11.0 Hypertensive heart disease with heart failure; I50.9 Heart failure, unspecified; I25.10 Atherosclerotic heart disease of native coronary artery without angina pectoris; E78.5 Hyperlipidemia, unspecified; J44.9 Chronic obstructive pulmonary disease, unspecified; J96.10 Chronic respiratory failure, unspecified whether with hypoxia or hypercapnia; Z99.81 Dependence on supplemental oxygen; Z95.5 Presence of coronary angioplasty implant and graft; Z86.73 Personal history of transient ischemic attack (TIA), and cerebral infarction without residual deficits; Z87.891 Personal history of nicotine dependence
CPT/HCPCS: 36415; 70450; 80048; 80053; 81003; 83735; 85025; 85027; 85610; 85730; 93005; 96365; 96375; 96376; 97161; 97165; 99285; A9270; G0378; J1100; J1953

== ENCOUNTER → 2020-10-23 00:46 | Outpatient (CLI) | payer MEDICARE, SELFPAY ==
[2020-10-23 19:49] LABS: SARS-CoV-2 RNA PCR Negative
== END ==
PROVIDERS: PCP Internal Medicine; Visit Provider Surgery
DX: Z01.812 Encounter for preprocedural laboratory examination (principal); Z20.822 Contact with and (suspected) exposure to COVID-19
CPT/HCPCS: C9803; U0003; U0005

== ENCOUNTER 2020-10-23 09:43 | Outpatient (CLI) | payer MEDICARE, SELFPAY ==
[2020-10-23 11:02] LABS: Basophils Percent Auto 0.5 % (0.2-1.2); Eosinophils Absolute Auto 0.3 K/mm3 (0-0.3); Eosinophils Percent Auto 3.6 % (0-4.4); Hematocrit 30.9 % (42.0-52.0); Hemoglobin 9.5 g/dL (14.0-18.0); Immature Granulocyte Absolute 0.04 K/mm3 (0.00-0.031); Immature Granulocyte Percent A 0.5 % (0-0.5); Lymphocytes Absolute Auto 1.68 K/mm3 (0.9-3.2); Lymphocytes Percent Auto 21.5 % (18.3-44.2); Mean Corpuscular HGB Conc 30.7 g/dl (32-36); Mean Corpuscular Volume 94.2 fl (80-100); Mean Platelet Volume 9.6 fl (7.4-10.4); Monocytes Absolute Auto 0.5 K/mm3 (0.1-0.6); Monocytes Percent Auto 6.7 % (2.6-8.5); Neutrophils Absolute Auto 5.2 K/mm3 (1.3-6.7); Neutrophils Percent Auto 67.2 % (45.5-73.1); Platelet Count Result 467 k/mm3 (150-375); Red Blood Count 3.28 M/mm3 (4.6-6.20); Red Cell Distribution Width 13.6 % (11.5-14.5); White Blood Count 7.8 K/mm3 (4.5-10.0)
[2020-10-23 11:14] LABS: Prothrombin Time 13.5 Seconds (11.1-14.7)
[2020-10-23 11:15] LABS: Anion Gap 2 mmol/L (8-16); Blood Urea Nitrogen 18 mg/dL (9-20); Calcium 8.2 mg/dL (8.4-10.2); Carbon Dioxide 37 mmol/L (22-30); Chloride 101 mmol/L (98-107); Estimated Glomerular Filt Rate > 60; Glucose 109 mg/dL (75-110); Potassium 4.3 mmol/L (3.4-5.0); Sodium 140 mmol/L (137-145)
== END 2020-10-23 09:44 | disposition home or self-care (01) ==
PROVIDERS: Anesthesiology; PCP Internal Medicine; Visit Provider Surgery
DX: C34.90 Malignant neoplasm of unspecified part of unspecified bronchus or lung (principal); Z01.818 Encounter for other preprocedural examination
CPT/HCPCS: 36415; 80048; 85025; 85610; 85730; C9803; U0003; U0005

== ENCOUNTER 2020-10-26 01:38 | Day surgery (SDC) | payer MEDICARE, SELFPAY ==
[2020-10-22 08:15] VITALS: BMI 27.5
--- NOTE | ~2020-10-26 | XR_ITS ---
EXAMINATION: XR fl guide central line place EXAM DATE: 10/26/2020 14:10 INDICATION: Leonidas catheter insertion. TECHNIQUE: Fluoroscopy used during XR fl guide central line place performed by Dr. Ej Mar MD. Radiologist was not present for the imaging or procedure. Total fluoroscopic time of 1.8 sav dalia. A total of 1 images obtained for the exam. The DAP for this procedure was 0.67 mGym2. FINDINGS: There is a left-sided portacatheter, tip projecting over the cavoatrial junction. Correla te with procedure note. IMPRESSION: Fluoroscopy used during XR fl guide central line place. Reviewed, dictated and finalized at location A.
--- NOTE | ~2020-10-26 | XR_ITS ---
EXAMINATION: XR chest port-a-cath/central DATE: 10/26/2020 14:30 INDICATION: Port placement. Postop. TECHNIQUE: A single frontal view of the chest was obtained on 2 radiographs. COMPARISON: Chest 2 views 07/31/2020, chest CT 07/31/2020 FINDINGS: There are lucencies in the lungs, consistent with emphysema. There is mild atelectasis vers us scarring in the lower lung zones. There is mild scarring at right lung apex. No pleural effusion o r pneumothorax. The heart size is normal. There is a large hiatal hernia. There is a left internal ju gular port with tip in superior vena cava. IMPRESSION: 1. Port tip in superior vena cava. 2. Emphysema. 3. Mild atelectasis versus scarring in the lower lung zones. Mild scarring at right lung apex. 4. Large hiatal hernia. Reviewed, dictated and finalized at location A. IMPRESSION: 1. Port tip in superior vena cava. 2. Emphysema. 3. Mild atelectasis versus scarring in the lower lung zones. Mild scarring at r ight lung apex. 4. Large hiatal hernia.
--- NOTE | 2020-10-26 07:37 | PM.HPGS ---
History of Present Illness History of Present Illness Consent: Risks, benefits, and alternatives of placement of a Port-A-Cath have been discussed and questions answered. Patient agrees to proceed with procedure. Chief complaint: non small lung CA Narrative: Pb Gunderson is a 75 year old male who has multiple medical problems including coronary artery disease, duodenitis secondary to NSAID ingestion, anemia secondary to GI bleed, multiple lung nodules consistent with lung cancer and metastasis to the right brain. Chemotherapy is planned and therefore I have been asked to place a Port-A-Cath for the patient. Review of Systems Constitutional: Constitutional: Reports no additional constitutional complaints, Reports fatigue and Denies malaise Eyes: Eyes: Denies change in vision and Denies loss of vision ENT: Reports Normal hearing present, Denies change in voice, Denies dizziness, Denies hoarseness and Denies sore throat Cardiovascular: Cardiovascular: Denies chest pain, Denies leg edema, Reports dyspnea (Occasional with activity) and Reports dyspnea on exertion Respiratory: Respiratory: Denies cough, Denies dyspnea and Denies wheezing Comments: Known left-sided lung cancer with multiple pulmonary nodules and a brain metastasis. He has had neuro radiologic treatment of the brain metastasis recently. Gastrointestinal: Gastrointestinal: Denies hematochezia, Denies change in bowel habits, Denies heartburn, Denies nausea and Denies vomiting Comments: Patient has had a recent ED EGD which showed gastritis and he is under treatment for this and for the anemia which apparently was related to this. Genitourinary: Genitourinary: Denies urinary frequency and Denies urinary incontinence Neurologic: Reports Normal hearing present, Denies confusion, Denies dizziness, Denies loss of vision, Denies memory loss and Denies seizure-like activity Comments: History of right-sided brain metastasis in the parietal area status post targeted neuro radiologic treatment. Psychiatric: Psychiatric: Denies confusion, Denies depression and Denies memory loss Endocrine: Endocrine: Denies cold intolerance and Reports fatigue Hematologic/Lymphatic: Hematologic/Lymphatic: Denies easy bleeding and Denies easy bruising Comments: Anemia with mild improvement Allergic/Immunologic: Allergic/Immunologic: Denies wheezing PMFSH Past Medical History Medical History Chronic respiratory failure with hypoxia, on home oxygen therapy Congestive heart failure Possible LV thrombus of apex life vest was approved. EF grade 1 diastolic with EF 25-30% COPD (chronic obstructive pulmonary disease) Hyperlipidemia Hypertension S/P ORIF (open reduction internal fixation) fracture Right ankle Surgical History Surgical History H/O cardiac catheterization H/O heart artery stent H/O: vasectomy Family History Family History Sibling Accelerated phase chronic myeloid leukemia 1 brother Sibling Lung cancer To brothers Mother Emphysema lung Sibling Cerebrovascular accident Social History Social History Social History: The patient lives with his . She is a durable power tax attorney for healthcare. He has 5 children. He desires to be a full code. He is retired from [employer]. He is a former smoker. He does not use any marijuana or illicit drugs. He said he did use marijuana when he was younger. No alcohol. Smoking packs per day: 2 Smoking cigarettes per day: 40.0 Years smoked: 55 Smoking pack-years: 110.00 Smoking status: Former smoker Tobacco type: cigarettes Second hand tobacco smoke exposure: No Smoking end date: 01/15/16 Alcohol intake: former Alcohol use details: SOCIAL DRINKER IN PAST Substance use:
[2020-10-26 11:47] VITALS: BP 132/52; PULSE 86; RESP 18; TEMP 36; O2SAT 94
[2020-10-26] MEDS: LACTATED RINGERS 1,000 ML 30 ML IV CONT (12:00)
[2020-10-26] MEDS: KETOROLAC 15 MG/ML VIAL (*BKC) IV PUSH (12:02)
--- NOTE | 2020-10-26 12:21 | WPDHPUPDATE1 ---
History and Physical Update Update Date/Time: 10/26/20 12:21 History and Physical has been reviewed, including an updated exam of the patient. There are NO changes in the patient's condition. Risks, benefits, and alternatives of placement of a Leonidas-cath have been discussed and questions answered. Patient agrees to proceed with procedure.
--- NOTE | 2020-10-26 12:22 | WPDANESEPPF ---
Anes - Initial Pre Proc Eval Procedure: Operation Date: 10/26/20 13:15 Proposed Procedures p Insertion Leonidas Cath - Ej Mar MD Date/Time: 10/26/20 12:22 Surgeon: Ej Mar MD Pre Op Diagnosis: non small lung CA Patient Data Age: 75 Gender: M Height: 6 ft Weight: 92 kg Allergies Allergy/AdvReac Type Severity Reaction Status Date / Time Influenza Virus Vaccines Allergy Unknown Rash Verified 10/22/20 07:58 Lnhmzdb-Pdi-Iub Reductase AdvReac Muscle Pain Verified 10/22/20 08:25 Inhibitor Home Medications Medication Instructions Recorded Confirmed Type ferrous sulfate 325 mg PO BID 05/17/20 10/22/20 History spironolactone 25 mg PO QAM #30 tablet 05/20/20 10/22/20 Rx aspirin 81 mg PO QAM #0 tablet 06/07/20 10/22/20 Rx clopidogrel 75 mg PO QAM #0 tablet 06/07/20 10/22/20 Rx acetaminophen-codeine 1 tablet PO Q6H PRN 08/25/20 10/22/20 History escitalopram oxalate 10 mg PO QAM 08/25/20 10/22/20 History losartan 25 mg PO QAM 08/25/20 10/22/20 History metoprolol succinate 12.5 mg PO QAM 08/25/20 10/22/20 History albuterol sulfate 2 puff INHALATION Q4-6H PRN 10/22/20 10/22/20 History albuterol sulfate 2.5 mg INHALATION Q4-6H PRN 10/22/20 10/22/20 History gabapentin 100 mg PO TID PRN 10/22/20 10/22/20 History hydrocodone-acetaminophen 1 tablet PO Q6-8H PRN 10/22/20 10/22/20 History hydroxyzine HCl 25 mg PO HS 10/22/20 10/22/20 History levetiracetam 500 mg PO BID 10/22/20 10/22/20 History trazodone 100 mg PO HS 10/22/20 10/22/20 History umeclidinium-vilanterol [Anoro 1 inh INHALATION QAM 10/22/20 10/22/20 History Ellipta] Patient hx anesthesia problems: none Family hx anesthesia problems: none PMFSH Past Medical History Medical History Chronic respiratory failure with hypoxia, on home oxygen therapy Congestive heart failure Possible LV thrombus of apex life vest was approved. EF grade 1 diastolic with EF 25-30% COPD (chronic obstructive pulmonary disease) Hyperlipidemia Hypertension S/P ORIF (open reduction internal fixation) fracture Right ankle Surgical History Surgical History H/O cardiac catheterization H/O heart artery stent H/O: vasectomy Family History Family History Sibling Accelerated phase chronic myeloid leukemia 1 brother Sibling Lung cancer To brothers Mother Emphysema lung Sibling Cerebrovascular accident Social History Social History Social History: The patient lives with his . She is a durable power assistant county attorney for healthcare. He has 5 children. He desires to be a full code. He is retired from [employer]. He is a former smoker. He does not use any marijuana or illicit drugs. He said he did use marijuana when he was younger. No alcohol. Smoking packs per day: 2 Smoking cigarettes per day: 40.0 Years smoked: 55 Smoking pack-years: 110.00 Smoking status: Former smoker Tobacco type: cigarettes Second hand tobacco smoke exposure: No Smoking end date: 01/15/16 Alcohol intake: former Alcohol use details: SOCIAL DRINKER IN PAST Substance use: never Living arrangements: with family Additional living arrangements comments: , SON AND DIL Gender identity (if verbalized by the patient): Male Spiritual care concerns: No Anes - Eval Final PreProcedure Day of Procedure 10/26/20 12:22 Patient weight: overweight Heart: regular rate and rhythm Lungs: decreased breath sounds Airway: Mallampati scale class II Neurological: alert and oriented Last oral intake: >/= 8 hours ASA classification: IV Emergent: no Anesthetic plan: proceed Anesthesia type and monitoring: general GIVS and standard monitoring Informed Consent: The patient's anesthetic plan and its attendant risks and b
[2020-10-26] MEDS: ceFAZolin 2 GM/D5W 50 ML 2 GM/50 ML BAG IVPB (12:42)
[2020-10-26] MEDS: HEPARIN SODIUM 5,000 UNITS/ML VIAL 5000 UNITS IRRIGATION (13:12)
[2020-10-26] MEDS: BUPIVACAINE/EPINEPHRINE 0.5% 30 ML VIAL INFILTRATE (13:45)
--- NOTE | 2020-10-26 14:16 | PM.PROC ---
Procedure Note - Detailed Date of procedure: 10/26/20 Pre-op diagnosis: non small lung CA Procedure performed: Ultrasound-guided placement of Port-A-Cath Description of procedure: Patient was seen and marked in the pre-op area prior to coming to the OR. Patient was brought to the operating room. He was placed supine on the operating table and general IV sedation was induced. The nurse public health policy analyst provided oxygen and IV sedation. Patient's head was carefully turned to the left side while in the supine position and the patient's entire neck and anterior chest on both sides was prepped and draped in the usual sterile fashion. Following this the appropriate time-out was completed confirming procedure and patient. We confirmed that all the needed equipment was present in the room. Following this the ultrasound probe was draped into the field and using the probe we carefully identified the carotid artery and jugular vein on the right neck. I marked the skin directly over the Rt. internal jugular vein which was very small and collapsed also inferior to it there did not appear to be a could diameter vein. We took a picture of this on US. Following this, using the continuous ultrasound guidance, a Cook needle was placed through the skin into this vein. I then was able to draw back some dark blood. Once this was completed I tried to pass a guidewire using a J-tip using fluoroscopy the guidewire would not advance and a curled. Therefore I did not pursue placement on this side. Subsequently did image the subclavicular subclavicular area and tried a single subclavicular stick which got some good dark blood but again the guidewire would not thread without curling. Therefore with looked at the left neck. Ultrasound of the left neck reveals a slightly larger but still kind of collapsed vein near the carotid artery which was prominent. A picture of this anatomy was also taken by ultrasound. Following this we did use the needle to obtain access to the left side jugular vein. Following this we advanced a J-tip guidewire through the needle and into the central venous system. Following this I advanced through the needle and then the needle and the guidewire cover were withdrawn. C-arm fluoroscopy was used to confirm that the guidewire was nicely in the central venous system. Once this was confirmed with the C - arm I preceded on by making the pocket for the port on the patient's anterior left chest approximately 3 centimeters below the clavicle overlying the chest wall. Local anesthetic was infiltrated into the skin where there was a transverse incision marked out. Incision was made and we made a pocket inferior to the incision with just a little dissection superior. The low-profile port was tried in the pocket and seemed to fit well. Following this the catheter which had been placed on a tunneling device was tunneled from the port site on the anterior left chest up to the left neck where a small incision had been made with an #11 blade knife. Then the catheter was pulled through so that we would have 19 centimeters to put into the central venous system once the dilation took place. Following this we placed the dilator and sheath over the guidewire in the left jugular vein and carefully dilated the tract into the central venous system. The guidewire and dilator were then removed, carefully covering the end of the sheath to prevent air embolus. The end of the catheter was then inserted into the sheath and into the neck. I then carefully pulled the 2 arms of the tear-away sheath away as the assistant chief train dispatcher held the catheter in position with a DeBakey forceps. Following this we checked the position of the catheter with C-arm fluoroscopy confirming that the tip seemed to be in the mid to distal superior vena cava. I felt that it was in good position and so the rest of the catheter was pulled down toward the feet into the port site. We then measured to the appropriate position to cut
[2020-10-26 14:20] VITALS: BP 124/51; PULSE 62; RESP 16; TEMP 36.4; O2SAT 100
[2020-10-26 14:50] VITALS: BP 122/54; PULSE 59; RESP 16
--- NOTE | 2020-10-26 15:12 | SUR.PHASEII ---
1430 radiology at bedside with Dr Mar also, chest xray looks good for amelia cath insertion into left upper chest. ok for discharge per dr mar
== END 2020-10-26 15:05 | disposition home or self-care (01) ==
PROVIDERS: PCP Internal Medicine; Visit Provider Surgery
PROC: (CPT 36561; principal; 2020-10-26 13:15)
DX: C34.90 Malignant neoplasm of unspecified part of unspecified bronchus or lung (principal); C79.9 Secondary malignant neoplasm of unspecified site; I11.0 Hypertensive heart disease with heart failure; I50.9 Heart failure, unspecified; J96.11 Chronic respiratory failure with hypoxia; Z99.81 Dependence on supplemental oxygen; J44.9 Chronic obstructive pulmonary disease, unspecified; E78.5 Hyperlipidemia, unspecified; Z87.891 Personal history of nicotine dependence; Z79.82 Long term (current) use of aspirin; Z79.51 Long term (current) use of inhaled steroids; K29.80 Duodenitis without bleeding; Z79.02 Long term (current) use of antithrombotics/antiplatelets; Z95.5 Presence of coronary angioplasty implant and graft
CPT/HCPCS: 36561; 36415; 76937; 77001; 80048; 85025; 85610; 85730; C1788; C9803; J0690; J1644; J1885; J2704; J3010; J7120; U0003; U0005

== ENCOUNTER 2020-10-29 09:12 | Outpatient (CLI) | payer MEDICARE, SELFPAY ==
--- NOTE | ~2020-10-29 | PE_ITS ---
EXAMINATION: PET skull to mid thigh DATE: 10/29/2020 11:00 INDICATION: Non-small cell lung cancer TECHNIQUE: Blood glucose level was 109 mg/dL. 9.43 mCi of 18-fluorodeoxyglucose (18-FDG) was administ ered i.v. Low dose computed tomography (CT) images were acquired from the base of the brain to the pr oximal thighs for attenuation correction and anatomic localization. Positron emission tomography (PET ) images were acquired in the same distribution beginning 49 minutes after injection. The dose-length product (DLP) was 1052.58 mGy-cm. COMPARISON: CT, 07/31/2020, 08/12/2020 FINDINGS: Head/neck: Although at the upper limits of the scanned anatomy, the previously described vasogenic ed roger in the right frontal and parietal lobes appears to have improved. No abnormal FDG uptake is ident ified. Minimal FDG activity in the vocal cords without suspicious CT correlate is likely physiologic. Chest: There is moderate emphysema. There is an unchanged 1.9 cm spiculated, mixed solid and some gina id nodule of the right upper lobe at the hilum with abnormal FDG uptake and SUV max of 2.7. A 1.8 cm spiculated paramediastinal nodule in the anterior segment of the left upper lobe demonstrates abnorma l FDG uptake with an SUV max 8.9. The previously described 1.3 cm nodule along the dome of the diaphr agm does not demonstrate scattered smaller nodules are seen throughout the lungs without definite FDG uptake, possibly related to small size. A left internal jugular Port-A-Cath ends with its tip in the distal superior vena cava. No pathologically enlarged thoracic lymph nodes are identified. The heart size is normal. There is no pleural effusion or pneumothorax. Abdomen/pelvis/proximal thighs: Physiologic FDG activity is present in the bowel and urinary tract. T here is a large sliding hiatal hernia. The liver, spleen, pancreas, gallbladder, and adrenal glands a re normal. There is calcified atherosclerosis of the aorta and many of the other arteries. No patholo gically enlarged abdominal or pelvic lymph nodes are identified. The appendix is normal. Musculoskeletal: There is a subtle lesion in the lateral aspect of the right third rib with abnormal FDG uptake. There is patchy uptake in the anterolateral aspect of the left fourth rib with fracture, possibly pathologic. There is a lytic lesion involving the right aspect of the T11 vertebral body wit h abnormal FDG uptake. There is also a subtle lesion in the S2 vertebral body with abnormal FDG uptak e. Severe lumbar spondylosis is noted. IMPRESSION: 1. Nodules in the right upper lobe and left upper lobe, consistent with primary bronchogenic carcinom a. 2. Osseous lesions as described above with abnormal FDG uptake, consistent with metastatic disease. Reviewed, dictated and finalized at location B. IMPRESSION: 1. Nodules in the right upper lobe and left upper lobe, consistent with primary bronchogenic carcinoma. 2. Osseous lesions as described above with abnormal FDG uptake, consistent with metastatic disease.
[2020-10-29 09:34] LABS: Glucose Point of Care 109 (65-105)
== END 2020-10-29 09:13 | disposition home or self-care (01) ==
PROVIDERS: PCP Internal Medicine; Visit Provider Internal Medicine Hematology & Oncology
DX: C34.12 Malignant neoplasm of upper lobe, left bronchus or lung (principal)
CPT/HCPCS: 78815; 82948; 96372; A9552; J3420

== ENCOUNTER 2021-01-01 07:14 | Outpatient (RCR) | payer MEDICARE, SELFPAY ==
[2021-01-01] VITALS (11 sets, daily range): BP systolic 120–133; BP diastolic 53–87; PULSE 67–75; RESP 16–20; TEMP 36.1–36.3; O2SAT 97–100
[2021-01-01] MEDS: ACETAMINOPHEN 325 MG TABLET 650 MG PO (07:56)
[2021-01-01] MEDS: SODIUM CHLORIDE 0.9% IV 250 ML 30 ML IV CONT (07:57)
[2021-01-01] MEDS: diphenhydrAMINE HCl CAP 25 MG CAPSULE PO (07:57)
[2021-01-01] MEDS: FUROSEMIDE INJ 40 MG/4 ML VIAL 20 MG IV PUSH (11:32)
--- NOTE | 2021-01-01 13:57 | PC.NURSE ---
Blood tubing changed out between units of PRBCs.
[2021-01-01] MEDS: HEPARIN SOD FLUSH 500 UNITS/5 ML SYRINGE (14:52)
== END 2021-04-01 23:59 | disposition home or self-care (01) ==
LOC: ANHCPCTRAN 07:14
PROVIDERS: PCP Internal Medicine; Visit Provider Internal Medicine Hematology & Oncology
DX: D64.9 Anemia, unspecified (principal)
CPT/HCPCS: 36415; 36430; 86850; 86900; 86901; 86920; 96374; A9270; J1940; J7050; P9016

== ENCOUNTER 2021-01-25 08:26 | Outpatient (CLI) | payer MEDICARE, SELFPAY ==
--- NOTE | ~2021-01-25 | NM_ITS ---
EXAMINATION: NM bone scan whole body DATE: 01/25/2021 13:17 INDICATION: Non-small cell left lung cancer TECHNIQUE: 26.5 mCi Tc-99m HDP was administered intravenously. Delayed whole-body scintigrams were o btained. COMPARISON: CT chest, abdomen and pelvis dated 01/25/2021 and PET/CT dated 10/29/2020 FINDINGS: There are multiple foci of moderate to high bone uptake associated with focal mixed lytic and sclerot ic bone lesions, the most prominent which also demonstrated increased FDG uptake on prior PET/CT cons istent with metastatic disease. These include subtle small lesion at the right side of the manubrium, several rib lesions including the anterior right third, posterior right second, anterior left fourth and posterior left 12th ribs, the vertebral bodies and posterior elements at multiple levels in the lumbar and lower thoracic spine, at S2, left posterior iliac spine and anterior right iliac wing. Lik maría elena degenerative joint centered uptake at the bilateral carpi. IMPRESSION: 1. Multiple likely metastatic bone lesions consistent with metastatic disease which appear to extend lytic/sclerotic on CT and several of the larger with increased FDG uptake on prior PET/CT. Reviewed, dictated and finalized at location A. IMPRESSION: 1. Multiple likely metastatic bone lesions consistent with metastatic disease w hich appear to extend lytic/sclerotic on CT and several of the larger with incr eased FDG uptake on prior PET/CT.
--- NOTE | ~2021-01-25 | CT_ITS ---
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 Follow-up. TECHNIQUE: Spiral CT of the chest, abdomen and pelvis was performed following intravenous injection o f 100 mL Omnipaque 350. Axial, coronal and sagittal images chest, abdomen and pelvis were reviewed. Coronal maximum intensity pixel images of chest reviewed. The dose-length product (DLP) for this ex amination was 1028.30 mGy-cm. The exposure was tailored according to patient size (auto mA exposure control), and iterative reconstruction (ASIR) was used as additional dose reduction technique. Compar colt is made to prior examination from 07/31/2020. FINDINGS: CHEST: Previously seen left upper lobe anterior segmental FDG positive nodule measures 2.1 x 0.8 max imal dimensions on coronal sequence (previously 2.1 x 1.2 cm), some interval decrease in volume. Prev iously seen right suprahilar nodule measures 1.5 cm in AP dimension today (previously 1.8 cm). There is moderate bronchiectasis. There are scattered tree-in-bud pattern basilar predominant nodules, have progressed, most likely chronic infectious process. There is moderate emphysema. There is moderate s liding gastroesophageal hiatal hernia. There are no pleural or pericardial effusions. Tracheobronc hial tree is patent. There is no mediastinal, hilar or axillary lymphadenopathy. There is no pneu mothorax. Heart normal in size. There is moderate coronary arterial calcification, arterial scler osis. ABDOMEN PELVIS: There is hepatic steatosis without suspicious focal lesion identified. Spleen, adrena l glands, pancreas are unremarkable. Single small density within otherwise unremarkable gallbladder probably gallstone. There is mild bilateral renal atrophy. Portal and splenic veins are patent. Kid neys enhance symmetrically. There is no hydronephrosis. Small renal cysts. The prostate is unremark able. Small bilateral inguinal fat-containing hernias. The bladder is unremarkable. There is no ret roperitoneal or pelvic lymphadenopathy. There is moderate scattered arteriosclerotic disease. The appendix is normal. The stomach and small bowel are unremarkable. There is expected amount of c olonic stool. No free intraperitoneal gas. Interval development of scattered mixed osteolytic and osteoblastic disease including the right 3rd, left 4th ribs, several lower thoracic vertebral bodies , the sacrum. IMPRESSION: 1. Right suprahilar, left upper lobe anterior segmental spiculated nodules with mild decrease in vol ume probably following treatment. 2. Interval development of scattered mixed blastic and lytic bony metastatic disease. 3. Progression of basilar reticulonodular opacities, distribution and appearance most consistent wit h chronic infectious process. 4. Moderate emphysema and bronchiectasis. 5. Moderate hiatal hernia. 6. Other chronic findings. Reviewed, dictated and finalized at location A. IMPRESSION: 1. Right suprahilar, left upper lobe anterior segmental spiculated nodules wit h mild decrease in volume probably following treatment. 2. Interval development of scattered mixed blastic and lytic bony metastatic d isease. 3. Progression of basilar reticulonodular opacities, distribution and appearan ce most consistent with chronic infectious process. 4. Moderate emphysema and bronchiectasis. 5. Moderate hiatal hernia. 6. Other chronic findings.
== END 2021-01-25 08:27 | disposition home or self-care (01) ==
PROVIDERS: Visit Provider Internal Medicine Hematology & Oncology
DX: C34.92 Malignant neoplasm of unspecified part of left bronchus or lung (principal); K44.9 Diaphragmatic hernia without obstruction or gangrene; J43.9 Emphysema, unspecified; R91.8 Other nonspecific abnormal finding of lung field; C79.51 Secondary malignant neoplasm of bone
CPT/HCPCS: 71260; 74177; 78306; A9561; Q9967

== ENCOUNTER 2021-01-31 12:25 | Outpatient (CLI) | payer MEDICARE, SELFPAY ==
--- NOTE | ~2021-01-31 | MR_ITS ---
EXAMINATION: MR brain/brain stem wo/w con EXAM DATE: 01/31/2021 14:01 INDICATION: C79.31 - Secondary malignant neoplasm of brain. TECHNIQUE: Magnetic resonance imaging (MRI) of the brain/brain stem obtained without contrast. Sagit ketan T1, axial diffusion, gradient echo (T2*), T1, T2, FLAIR sequences obtained. Patient was then inj ected with 18 cc intravenous Multihance contrast. Axial and coronal postcontrast T1 weighted sequence s obtained. Comparison is made to prior examination from 08/19/2020. FINDINGS: Previously seen right parietal lobe metastatic lesion measured 1.8 cm on previous examinati on, measures 5 mm today with near resolution of previously seen associated vasogenic edema. There is there are two 3 mm foci of enhancement in the right occipital lobe, probably metastatic lesi ons. Another similar size lesion in the right frontal lobe. These are new compared to previous examin ation there is small old left cerebellar infarction. Mild microangiopathy and cerebral atrophy. No acute infarction, intracranial hemorrhage, extra-axial collections or obstructive hydrocephalus. Soft tissue is unremarkable. IMPRESSION: 1. Significant interval decrease in size of right parietal lobe metastatic lesion. 2. Interval development of 3 punctate right cerebral metastatic lesions. 3. 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 4. Mild senescent changes. Reviewed, dictated and finalized at location A. IMPRESSION: 1. Significant interval decrease in size of right parietal lobe metastatic les ion. 2. Interval development of 3 punctate right cerebral metastatic lesions. 3. 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 4. Mild senescent changes.
== END 2021-01-31 12:26 | disposition home or self-care (01) ==
PROVIDERS: PCP Internal Medicine; Visit Provider Radiology Radiation Oncology
DX: C79.31 Secondary malignant neoplasm of brain (principal)
CPT/HCPCS: 70553; A9577

== ENCOUNTER 2021-04-01 17:16 | Emergency (ER) | payer MEDICARE, SELFPAY ==
--- NOTE | ~2021-04-01 | XR_ITS ---
XR chest 2V DATE: 04/01/2021 18:08 INDICATION: Cough, shortness of breath. COPD, hypertension, congestive heart failure. TECHNIQUE: AP and lateral views COMPARISON: 01/25/2021 CT chest 10/26/2020 portable AP chest FINDINGS: Heart size is within normal limits. There is a large hiatal hernia. There is aortic calcifi cation. Bilateral hyperinflation consistent with COPD. Probable chronic interstitial fibrotic changes versus atelectasis or mild infiltrate in the lower lung zones. No pleural effusion or pulmonary vascular congestion or pneumothorax is evident. Left internal jugular Port-A-Cath catheter tip overlies the superior vena cava. IMPRESSION: Left Port-A-Cath in superior vena cava Bilateral hyperinflation consistent with COPD Increased interstitial markings in the lower lung zones suggesting interstitial fibrosis; infiltrate and/or atelectasis are not excluded. Aspiration pneumonitis is also a consideration. Large hiatal hernia Diffuse osteopenia, degenerative spurring of the thoracic spine Reviewed, dictated and finalized at location A. IMPRESSION: Left Port-A-Cath in superior vena cava Bilateral hyperinflation consistent with COPD Increased interstitial markings in the lower lung zones suggesting interstitial fibrosis; infiltrate and/or atelectasis are not excluded. Aspiration pneumonit is is also a consideration. Large hiatal hernia Diffuse osteopenia, degenerative spurring of the thoracic spine
--- NOTE | 2021-04-01 17:28 | ECG_ITS ---
Measurements Intervals [place] Rate: 93 P: 39 NH: 147 QRS: 40 QRSD: 101 T: 59 QT: 358 QTc: 445 Interpretive Statements SINUS RHYTHM BASELINE ARTIFACT- I, II, III, AVR, AVF, V2-V6 NORMAL ECG Electronically Signed On 04-01-2021 20:05:55 CDT by Gamal Dominguez D.O.
[2021-04-01 17:46] VITALS: BP 130/75; PULSE 105; RESP 20; TEMP 37; O2SAT 95
[2021-04-01 17:51] LABS: Eosinophils Percent Auto 0.3 % (0-4.4); Immature Granulocyte Absolute 0.01 K/mm3 (0.00-0.031); Immature Granulocyte Percent A 0.3 % (0-0.5); Lymphocytes Absolute Auto 0.18 K/mm3 (0.9-3.2); Lymphocytes Percent Auto 4.9 % (18.3-44.2); Mean Corpuscular HGB Conc 31.3 g/dl (32-36); Mean Corpuscular Hemoglobin 29.6 pg (26-34); Mean Corpuscular Volume 94.7 fl (80-100); Mean Platelet Volume 10.3 fl (7.4-10.4); Monocytes Absolute Auto 0.3 K/mm3 (0.1-0.6); Neutrophils Absolute Auto 3.1 K/mm3 (1.3-6.7); Neutrophils Percent Auto 85.5 % (45.5-73.1); Platelet Count Result 184 k/mm3 (150-375); Red Blood Count 3.38 M/mm3 (4.6-6.20); Red Cell Distribution Width 14.7 % (11.5-14.5); White Blood Count 3.7 K/mm3 (4.5-10.0)
--- NOTE | 2021-04-01 17:55 | ED.SOB ---
HPI - SOB/Dyspnea General Chief Complaint: Shortness of Breath/Dyspnea Stated Complaint: DIFFICULTY BREATHING Time Seen by Provider: 04/01/21 17:24 Source: patient Limitations: no limitations History of Present Illness HPI Narrative: 76-year-old male History of coronary stent and COPD He also just finished treatment for lung cancer about 5 weeks ago which he believes has been at least somewhat successful however his record states that he was getting palliative radiation He is here due to increased shortness of breath He typically uses 5 L of oxygen at home and reports for the last 4 to 5 days that he has been much more dyspneic with activity He has been using his home bronchodilators without benefit Symptoms are not too bad when he is resting and he thinks laying down is a little bit better than sitting but he fatigues and gets short of breath very quickly with exertion He also notes that he is coughing up more phlegm than usual over the same amount of time He has not had a fever He did not get a Covid vaccine Related Data Home Medications Medication Instructions Recorded Confirmed ferrous sulfate 325 mg PO BID 05/17/20 03/12/21 acetaminophen-codeine 1 tablet PO Q6H PRN 08/25/20 03/12/21 escitalopram oxalate 10 mg PO QAM 08/25/20 03/12/21 losartan 25 mg PO QAM 08/25/20 03/12/21 metoprolol succinate 12.5 mg PO QAM 08/25/20 03/12/21 Anoro Ellipta 1 inh INHALATION QAM 10/22/20 03/12/21 albuterol sulfate 2 puff INHALATION Q4-6H PRN 10/22/20 03/12/21 albuterol sulfate 2.5 mg INHALATION Q4-6H PRN 10/22/20 03/12/21 gabapentin 100 mg PO TID PRN 10/22/20 03/12/21 hydrocodone-acetaminophen 1 tablet PO Q6-8H PRN 10/22/20 03/12/21 hydroxyzine HCl 25 mg PO HS 10/22/20 03/12/21 levetiracetam 500 mg PO BID 10/22/20 03/12/21 trazodone 100 mg PO 10/22/20 03/12/21 Allergies Allergy/AdvReac Type Severity Reaction Status Date / Time Influenza Virus Vaccines Allergy Unknown Rash Verified 03/12/21 09:13 [id number] Reductase AdvReac Muscle Pain Verified 03/12/21 09:13 Inhibitor Review of Systems Review of Systems: All systems reviewed & are unremarkable except as noted in HPI and below Constitutional: Constitutional: Reports no additional constitutional complaints, Denies chills, Reports fatigue, Denies fever(s), Denies headache(s) and Reports weakness Eyes: Eyes: Reports no additional eye complaints and Denies change in vision ENT: Denies headache(s) and Denies sore throat Cardiovascular: Cardiovascular: Denies chest pain and Denies dyspnea Respiratory: Respiratory: Reports chest congestion, Reports cough and Reports dyspnea Gastrointestinal: Gastrointestinal: Denies diarrhea, Denies nausea and Denies vomiting Genitourinary: Genitourinary: Denies dysuria and Denies urinary frequency Musculoskeletal: Musculoskeletal: Reports back pain, Reports myalgias, Denies deformity, Denies arthralgias, Denies joint swelling and Denies numbness Integumentary/Breasts: Skin/Breast: Denies rash and Denies wounds Neurologic: Denies headache(s), Denies focal weakness and Denies numbness Psychiatric: Psychiatric: Reports no additional psychiatric complaints Endocrine: Endocrine: Reports no additional endocrine complaints Hematologic/Lymphatic: Hematologic/Lymphatic: Reports no additional hematologic/lymphatic complaints Allergic/Immunologic: Allergic/Immunologic: Reports no additional allergic/immunologic complaints [facility] Past Medical History Medical History Chronic respiratory failure with hypoxia, on home oxygen therapy Congestive heart failure Possible LV thrombus of apex life vest was approved. EF grade 1 diastolic with EF 25-30% COPD (chronic obstructive pulmonary disease) Hyperlipidemia Hypertension S/P ORIF (open reduction internal fixation) fracture Right ankle Surgical History Surgical History
[2021-04-01 18:05] LABS: Anion Gap 9 mmol/L (8-16); Blood Urea Nitrogen 17 mg/dL (9-20); Calcium 7.3 mg/dL (8.4-10.2); Carbon Dioxide 26 mmol/L (22-30); Chloride 99 mmol/L (98-107); Estimated CRCL calculation 75 ml/min; Estimated Glomerular Filt Rate > 60; Glucose 146 mg/dL (65-110); Potassium 4.3 mmol/L (3.4-5.0); Sodium 134 mmol/L (137-145)
[2021-04-01 18:08] LABS: INR 0.9; Prothrombin Time 12.4 Seconds (11.1-14.7)
[2021-04-01 18:18] LABS: NT Pro B Type Natriuretic Pept 358 pg/mL (5-100); Troponin I < 0.012 ng/mL (0.000-0.034)
[2021-04-01 18:29] LABS: Ovalocytes 1+ (NORMAL); Platelet Estimate Adequate (Adequate)
[2021-04-01 18:30] VITALS: PULSE 94; RESP 16
[2021-04-01] MEDS: ALBUTEROL SULFATE NEB 2.5 MG/0.5 ML INH 5 MG INHALATION (18:30)
[2021-04-01] MEDS: IPRATROPIUM BR 0.02% INH SOLN 0.5 MG/2.5 ML VIAL INHALATION (18:30)
[2021-04-01 18:38] VITALS: PULSE 91; RESP 14
[2021-04-01 19:54] VITALS: BP 104/70; PULSE 95; RESP 14; O2SAT 98
[2021-04-01 21:21] VITALS: BP 141/76; PULSE 92; RESP 20; O2SAT 98
[2021-04-02 19:38] LABS: SARS-CoV-2 RNA PCR Positive
== END 2021-04-01 20:31 | disposition home or self-care (01) ==
PROVIDERS: Emergency Provider Emergency Medicine; PCP Internal Medicine
DX: U07.1 COVID-19 (principal); J44.1 Chronic obstructive pulmonary disease with (acute) exacerbation; C34.90 Malignant neoplasm of unspecified part of unspecified bronchus or lung; J96.11 Chronic respiratory failure with hypoxia; Z99.81 Dependence on supplemental oxygen; I50.9 Heart failure, unspecified; I11.0 Hypertensive heart disease with heart failure; E78.5 Hyperlipidemia, unspecified; Z95.5 Presence of coronary angioplasty implant and graft; Z87.891 Personal history of nicotine dependence; K44.9 Diaphragmatic hernia without obstruction or gangrene; M85.88 Other specified disorders of bone density and structure, other site; R91.8 Other nonspecific abnormal finding of lung field
CPT/HCPCS: 36415; 71046; 80048; 83880; 84484; 85025; 85610; 85730; 93005; 94640; 96365; 96375; 99284; C9803; J1100; U0003; U0005